=== PATIENT | male | born 1940 | race Caucasian/White ===

== ENCOUNTER → 2016-07-17 | Outpatient (CLI) | payer OTHER ==
[~2016-07-17] MED LIST: ALBUAER19 INH; ASPI81TA28 PO; BENZ100C6 PO; DILT120C99 PO; EZET10TA38 PO; LEVO1TAB34 PO
[2016-07-17 15:35] LABS: CHOLESTEROL/HDL RATIO 4.1
== END | disposition home or self-care (01) ==
LOC: C.LABBC 11:05
PROVIDERS: ATTEND Internal Medicine Cardiovascular Disease
DX: N40.0 Benign prostatic hyperplasia without lower urinary tract symptoms (principal); Z86.39 Personal history of other endocrine, nutritional and metabolic disease

== ENCOUNTER → 2017-08-20 | Outpatient (CLI) | payer OTHER ==
[~2017-08-20] MED LIST changes: +BENZ-54 PO; -BENZ100C6 PO
[2017-08-20 10:33] LABS: BASO % 0.3 %; BASO ABS # 0.02 K/uL (0-0.2); EOS % 3.5 %; EOS ABS # 0.21 K/uL (0-0.5); HEMATOCRIT 40.4 % (42-52); HEMOGLOBIN 13.2 g/dL (14.0-18.0); IG# 0.01 K/uL (0.00-0.02); LYMPH % 34.5 %; LYMPH ABS # 2.05 K/uL (1.2-3.4); MEAN CELL VOLUME 91.6 fL (80-100); MEAN CORPUSCULAR HEMOGLOBIN 29.9 pg (25-34); MEAN CORPUSCULAR HGB CONC 32.7 g/dl (32-36); MEAN PLATELET VOLUME 9.8 fL (7.4-10.4); MONO % 10.4 %; MONO ABS # 0.62 K/uL (0.11-0.59); NEUT % 51.1 %; NEUT ABS # 3.04 K/uL (1.4-6.5); PLATELET COUNT 154 K/uL (130-400); RED CELL DISTRIBUTION WIDTH SD 46.9 fL (36.4-46.3); WHITE BLOOD COUNT 5.95 K/uL (4.8-10.8)
[2017-08-20 10:55] LABS: ALBUMIN 3.5 gm/dl (3.4-5.0); ALT/SGPT 31 U/L (12-78); AST/SGOT 31 U/L (15-37); BLOOD UREA NITROGEN 14 mg/dl (7-18); CALCIUM 8.4 mg/dl (8.5-10.1); CARBON DIOXIDE 30 mmol/L (21-32); CREATININE 1.13 mg/dl (0.60-1.40); GLUCOSE 90 mg/dl (70-99); POTASSIUM 4.2 mmol/L (3.5-5.1); SODIUM 142 mmol/L (136-145)
[2017-08-20 11:04] LABS: ALKALINE PHOSPHATASE 108 U/L (45-117); CHOLESTEROL 161 mg/dl (0-200); LDL CHOLESTEROL CALCULATED 88 mg/dl; TOTAL PROTEIN 7.6 gm/dl (6.4-8.2)
== END | disposition home or self-care (01) ==
LOC: C.LABBC 08:33
PROVIDERS: ATTEND Internal Medicine
DX: K21.9 Gastro-esophageal reflux disease without esophagitis (principal); I25.10 Atherosclerotic heart disease of native coronary artery without angina pectoris; N40.0 Benign prostatic hyperplasia without lower urinary tract symptoms; G47.30 Sleep apnea, unspecified; D64.9 Anemia, unspecified; J84.9 Interstitial pulmonary disease, unspecified; E78.5 Hyperlipidemia, unspecified

== ENCOUNTER 2020-01-16 19:18 | Observation (INO) ==
[2020-01-16 20:24] LABS: Basophils # (auto) 0.01 K/uL (0-0.2); Basophils % (auto) 0.1 %; Eosinophils % (auto) 2.1 %; Hematocrit (blood only) 28.8 % (42-52); Hemoglobin 9.1 g/dL (14.0-18.0); Immature Granulocytes # (auto) 0.03 K/uL (0.00-0.02); Immature Granulocytes % (auto) 0.3 %; Lymphocytes # (auto) 2.05 K/uL (1.2-3.4); Lymphocytes % (auto) 21.9 %; Mean Corpuscular Hemoglobin 28.9 pg (25-34); Mean Corpuscular Hgb Conc 31.6 g/dL (32-36); Mean Corpuscular Volume 91.4 fL (80-100); Mean Platelet Volume 8.7 fL (7.4-10.4); Monocytes # (auto) 0.88 K/uL (0.11-0.59); Monocytes % (auto) 9.4 %; Neutrophils % (auto) 66.2 %; Platelet Count 273 K/uL (130-400); RDW Coefficient of Variation 14.2 % (11.5-14.5); RDW Standard Deviation 47.6 fL (36.4-46.3); Red Blood Count 3.15 M/uL (4.7-6.1); White Blood Count 9.37 K/uL (4.8-10.8)
[2020-01-16 20:37] LABS: INR 1.1 (0.9-1.1); Partial Thromboplastin Ratio 1.1; Partial Thromboplastin Time 30.6 Seconds (21.0-31.0); Prothrombin Time 11.8 Seconds (9.0-12.0)
[2020-01-16 20:45] LABS: Alanine Aminotransferase 46 U/L (12-78); Albumin Level 2.7 gm/dl (3.4-5.0); Aspartate Aminotransferase 45 U/L (15-37); BUN Creatinine Ratio 17.1 (10-20); Blood Urea Nitrogen 22 mg/dl (7-18); Calcium 8.6 mg/dl (8.5-10.1); Carbon Dioxide 30 mmol/L (21-32); Chloride 103 mmol/L (98-107); Est GFR (African American) 59.3; Est GFR (Non-African American) 51.2; Glucose 106 mg/dl (70-99); Sodium 137 mmol/L (136-145)
[2020-01-16 20:50] LABS: Albumin Globulin Ratio 0.6 (0.9-2); Alkaline Phosphatase 268 U/L (45-117); Bilirubin,Total 0.4 mg/dl (0.2-1); Creatine Kinase 166 U/L (39-308); Creatine Kinase MB 1.3 ng/ml (0.5-3.6); Globulin 4.7 gm/dl (2.5-4.0); Total Protein 7.4 gm/dl (6.4-8.2); Troponin I < 0.015 ng/ml (0-0.045)
--- NOTE | 2020-01-16 23:10 | Emergency Department Note ---
History of Present Illness General Chief complaint: Abnormal Labs/Diagnostic Testing Stated complaint: CT SCAN Time Seen by Provider: 01/16/20 19:25 Source: patient, family, RN notes reviewed and old records reviewed Mode of arrival: ambulatory Limitations: no limitations History of Present Illness Provider complaint: Abnormal CT scan, weakness Onset (ago): month(s) 2 Relieved By: + immobilization Exacerbated By: + movement Associated symptoms: + denies other symptoms; no confusion, no chest pain, no cough, no fever/chills, no headaches, no nausea/vomiting and no shortness of breath Treatments prior to arrival: none This is an 79-year-old male who was being worked up by his primary care physician who was sent into the emergency department over concerns about the patient's CAT scan. Patient has been noted to be weak over the past 2 months. 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 He has been on Plavix ever since. The patient has had a noticeable drop in his hemoglobin. 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 The patient himself has no complaints except for weakness. Home Medications Home Medications Medication Instructions Recorded Confirmed Type albuterol sulfate 90 mcg/actuation 1 puffs INH QID PRN #18 gm 10/08/19 01/16/20 Rx aerosol inhaler carvedilol 12.5 mg tablet 12.5 mg PO BID #180 tab 12/02/19 01/16/20 Rx saw palmetto 1 tab PO DAILY 12/02/19 01/16/20 History lycopene 10 mg capsule 10 mg PO DAILY PRN 12/23/19 01/16/20 History benzonatate 100 mg capsule 100 mg PO ONCE PRN cap 01/13/20 01/16/20 History fluticasone propionate 50 2 spray INTRANASAL DAILY #1 box 01/13/20 01/16/20 Rx mcg/actuation nasal spray,suspension aspirin 81 mg PO HS 01/16/20 01/16/20 History atorvastatin 40 mg PO HS 01/16/20 01/16/20 History cholecalciferol (vitamin D3) 50,000 unit PO WE 01/16/20 01/16/20 History clopidogrel 75 mg PO QAM 01/16/20 01/16/20 History cyanocobalamin (vitamin B-12) 500 mcg PO QAM 01/16/20 01/16/20 History fluticasone furoate-vilanterol 1 inh INHALATION QAM 01/16/20 01/16/20 History [Breo Ellipta] furosemide 40 mg PO QAM 01/16/20 01/16/20 History losartan 25 mg PO QAM 01/16/20 01/16/20 History pantoprazole 40 mg PO QAM 01/16/20 01/16/20 History Allergies Allergy/AdvReac Type Severity Reaction Status Date / Time metoprolol AdvReac Unknown GI SYMPTOMS Verified 01/13/20 11:17 Past Med/Surg History Medical History (Updated 01/16/20 @ 23:50 by Tapan Pickard MD) Abdominal pain, right lower quadrant Abnormal CT scan, lung Allergic rhinitis Basal cell carcinoma of skin Cholelithiasis Chronic anemia Chronic sinusitis Coronary artery disease Coughing Enlarged prostate without lower urinary tract symptoms (luts) Environmental allergies Erectile dysfunction HTN (hypertension) Hyperlipidemia Interstitial lung disease RAKAN (obstructive sleep apnea) Persistent cough Pleural effusion, left Pneumonia Wheezing Surgical History History of cardiac cath History of heart artery stent Family History Father Leukemia Prostate cancer Mother Breast cancer Diabetes Brother Myocardial infarction Prostate cancer Diabetes Other Cancer Hypertension Denies family history of Ovarian cancer Lung cancer Colorectal cancer Social History Smoking Status: Never smoker Second Hand Exposure: No; Hx Alcohol Use: Yes Alcohol type: wine Hx Substance Use: No Preferred Language: Dominican Communication Ability: Effective Visual Impairment: No Limitations Hearing Ability: Normal Dental Assistant Required: No marital status: Current Living Situation: Spouse current occupational status: retired current occupation: retired Feels Safe at Home: Yes Childhood Exposure to Second-Hand Smoke: No caffeine: No Dental Care, Regularly: Yes Physical Activity Frequency: 3-4 Times per Week Seatbelt Use: always Sunscreen Use: Yes Review of Systems A total of 10 systems reviewed and were otherwise negative Physical Exam Vital Signs Vital Signs - 24 hr 01/16/20 19:20 01/16/20 19:45 01/16/20 20:09 Temperature 37.3 C Temperature Source Oral Pulse Rate 98 H 86 91 H Pulse Rate from SpO2 Sensor 91 H Pulse Rhythm Regular Regular Pulse Strength Normal Respiratory Rate 20 18 22 Respiratory Effort / Characteristics Non-Labored Spontaneous Respiratory Depth Normal Respiratory Pattern Regular Blood Pressure 114/63 110/63 Blood Pressure Mean 80 78 Blood Pressure Position Sitting Pulse Oximetry 96 95 96 Oxygen Delivery Method Room Air Room Air Sepsis Recent Fever Within 48 Hours No Sepsis New/Unexplained Change in Mental Status N/A Sepsis Action Taken by Nursing No Action Required 01/16/20 20:30 01/16/20 21:00 01/16/20 21:30 Temperature Temperature Source Pulse Rate 87 84 85 Pulse Rate from SpO2 Sensor 87 84 77 Pulse Rhythm Pulse Strength Respiratory Rate 22 22 22 Respiratory Effort / Characteristics Respiratory Depth Respiratory Pattern Blood Pressure 103/56 L 102/57 L 107/62 Blood Pressure Mean 70 70 86 Blood Pressure Position Pulse Oximetry 97 95 96 Oxygen Delivery Method Sepsis Recent Fever Within 48 Hours Sepsis New/Unexplained Change in Mental Status Sepsis Action Taken by Nursing 01/16/20 22:00 01/16/20 22:30 Temperature Temperature Source Pulse Rate 79 84 Pulse Rate from SpO2 Sensor 80 83 Pulse Rhythm Pulse Strength Respiratory Rate 21 22 Respiratory Effort / Characteristics Respiratory Depth Respiratory Pattern Blood Pressure 99/56 L 101/52 L Blood Pressure Mean 70 63 Blood Pressure Position Pulse Oximetry 95 94 Oxygen Delivery Method Sepsis Recent Fever Within 48 Hours Sepsis New/Unexplained Change in Mental Status Sepsis Action Taken by Nursing VITAL SIGNS - Vital signs and nursing notes were reviewed. GENERAL - 79-year-old male appearing stated age who is in no acute distress. Communicates well with provider and answers questions appropriately. SKIN - Without rashes. HEAD - NC/AT. EYES - PERRL with EOMI bilaterally. Sclera anicteric. Palpebral conjunctiva pink and moist with no injection noted. EARS - No deformities of external structures noted on gross examination bilaterally. No pain elicited with palpation of the tragus bilaterally. External auditory canals without discharge or otorrhea. Tympanic membranes pearly herron without retraction or bulging. No fluid or purulent material visualized behind the TM. Handle of malleus, umbo, cone of light, pars tensa/flaccid all easily visualized. NOSE - Midline and without cyanosis. No epistaxis or purulent drainage noted. Septum midline without deviation or septal hematoma noted. MOUTH/OROPHARYNX - Without perioral cyanosis. Buccal mucosa pink and moist and without leukoplakia. Tongue midline with equal elevation of palate bilaterally. No tonsillar hypertrophy, erythema, or exudates noted. dentition noted. NECK - Neck with FROM. Supple to palpation. lymphadenopathy noted. No nuchal rigidity. LUNGS - Chest wall symmetric without accessory muscle use, intercostals retractions, or central cyanosis. Normal vesicular breath sounds CTA B/L. No wheezes, rales, or rhonchi appreciated. CARDIAC - RRR with S1/S2. No murmur, rubs, or gallops appreciated. ABDOMEN - Abdominal contour without pulsations or visible masses. BS normoactive all four quadrants. No tenderness, palpable masses, hepat osplenomegaly, or ascites noted. EXTREMITIES - No clubbing or peripheral cyanosis. No pretibial edema present. +3/5 radial, posterior tibial, and dorsalis pedis pulses palpated throughout. +5/5 strength noted in UE/LE bilaterally. NEUROLOGIC - Cranial nerves II through XII grossly intact. Sensory intact to light touch throughout. Patellar reflexes +2/4. PSYCH - A&Ox3 and cooperates fully with examiner. Pt is very pleasant and interacts well with examiner. Medical Decision Making Differential Diagnosis Infection, dehydration, metabolic abnormality, hypo/hyperglycemia, electrolyte disturbance, anemia, hypoxia, cardiac sources, intracerebral event, toxicologic, neurologic, as well as other pathologies. Medical Records Attestation: I reviewed the patient's medical records. Home Medications Current Medication List: was personally reviewed by me Laboratory Data Attestation: I reviewed the patient's lab results. Result diagrams: 01/16/20 20:00 01/16/20 20:00 Lab Results 01/16/20 01/16/20 01/16/20 Range/Units 20:00 20:00 20:00 WBC 9.37 (4.8-10.8) K/uL RBC 3.15 L (4.7-6.1) M/uL Hgb 9.1 L (14.0-18.0) g/dL Hct 28.8 L (42-52) % MCV 91.4 (80-100) fL MCH 28.9 (25-34) pg MCHC 31.6 L (32-36) g/dL RDW Std Deviation 47.6 H (36.4-46.3) fL RDW Coeff of Marcelina 14.2 (11.5-14.5) % Plt Count 273 (130-400) K/uL MPV 8.7 (7.4-10.4) fL Immature Gran % (Auto) 0.3 % Neut % (Auto) 66.2 % Lymph % (Auto) 21.9 % Monroe % (Auto) 9.4 % Eos % (Auto) 2.1 % Baso % (Auto) 0.1 % Neut # (Auto) 6.20 (1.4-6.5) K/uL Lymph # (Auto) 2.05 (1.2-3.4) K/uL Monroe # (Auto) 0.88 H (0.11-0.59) K/uL Eos # (Auto) 0.20 (0-0.5) K/uL Baso # (Auto) 0.01 (0-0.2) K/uL Immature Gran # (Auto) 0.03 H (0.00-0.02) K/uL ESR (0-14) mm/hr PT 11.8 (9.0-12.0) Seconds INR 1.1 (0.9-1.1) APTT 30.6 (21.0-31.0) Seconds PTT Ratio 1.1 Sodium 137 (136-145) mmol/L Potassium 4.0 (3.5-5.1) mmol/L Chloride 103 (98-107) mmol/L Carbon Dioxide 30 (21-32) mmol/L Anion Gap 4.0 (3-11) BUN 22 H (7-18) mg/dl Creatinine 1.30 (0.6-1.4) mg/dl Est Cr Clr Drug Dosing 46.0 ml/min Est GFR ( Amer) 59.3 Est GFR (Non-Af Amer) 51.2 BUN/Creatinine Ratio 17.1 (10-20) Glucose 106 H (70-99) mg/dl Calcium 8.6 (8.5-10.1) mg/dl Total Bilirubin 0.4 (0.2-1) mg/dl AST 45 H (15-37) U/L ALT 46 (12-78) U/L Alkaline Phosphatase 268 H (45-117) U/L Total Creatine Kinase 166 (39-308) U/L CK-MB (CK-2) 1.3 (0.5-3.6) ng/ml CK/CKMB % Calc 0.8 (0-3.0) Troponin I < 0.015 (0-0.045) ng/ml C-Reactive Protein 11.00 H (0-0.29) mg/dl Total Protein 7.4 (6.4-8.2) gm/dl Albumin 2.7 L (3.4-5.0) gm/dl Globulin 4.7 H (2.5-4.0) gm/dl Albumin/Globulin Ratio 0.6 L (0.9-2) Lyme Disease IgG Ab (Negative) Lyme Disease IgM Ab (Negative) COVID-19 Eval Order COVID-19 PCR (Negative) Blood Type Antibody Screen 01/16/20 01/16/20 01/16/20 Range/Units 20:00 20:00 20:00 WBC (4.8-10.8) K/uL RBC (4.7-6.1) M/uL Hgb (14.0-18.0) g/dL Hct (42-52) % MCV (80-100) fL MCH (25-34) pg MCHC (32-36) g/dL RDW Std Deviation (36.4-46.3) fL RDW Coeff of Marcelina (11.5-14.5) % Plt Count (130-400) K/uL MPV (7.4-10.4) fL Immature Gran % (Auto) % Neut % (Auto) % Lymph % (Auto) % Monroe % (Auto) % Eos % (Auto) % Baso % (Auto) % Neut # (Auto) (1.4-6.5) K/uL Lymph # (Auto) (1.2-3.4) K/uL Monroe # (Auto) (0.11-0.59) K/uL Eos # (Auto) (0-0.5) K/uL Baso # (Auto) (0-0.2) K/uL Immature Gran # (Auto) (0.00-0.02) K/uL ESR 69 H (0-14) mm/hr PT (9.0-12.0) Seconds INR (0.9-1.1) APTT (21.0-31.0) Seconds PTT Ratio Sodium (136-145) mmol/L Potassium (3.5-5.1) mmol/L Chloride (98-107) mmol/L Carbon Dioxide (21-32) mmol/L Anion Gap (3-11) BUN (7-18) mg/dl Creatinine (0.6-1.4) mg/dl Est Cr Clr Drug Dosing ml/min Est GFR ( Amer) Est GFR (Non-Af Amer) BUN/Creatinine Ratio (10-20) Glucose (70-99) mg/dl Calcium (8.5-10.1) mg/dl Total Bilirubin (0.2-1) mg/dl AST (15-37) U/L ALT (12-78) U/L Alkaline Phosphatase (45-117) U/L Total Creatine Kinase (39-308) U/L CK-MB (CK-2) (0.5-3.6) ng/ml CK/CKMB % Calc (0-3.0) Troponin I (0-0.045) ng/ml C-Reactive Protein (0-0.29) mg/dl Total Protein (6.4-8.2) gm/dl Albumin (3.4-5.0) gm/dl Globulin (2.5-4.0) gm/dl Albumin/Globulin Ratio (0.9-2) Lyme Disease IgG Ab (Negative) Lyme Disease IgM Ab (Negative) COVID-19 Eval Order Covid19 Done at [facility] COVID-19 PCR NEGATIVE (Negative) Blood Type Antibody Screen 01/16/20 01/16/20 01/16/20 Range/Units 20:00 20:00 20:13 WBC (4.8-10.8) K/uL RBC (4.7-6.1) M/uL Hgb (14.0-18.0) g/dL Hct (42-52) % MCV (80-100) fL MCH (25-34) pg MCHC (32-36) g/dL RDW Std Deviation (36.4-46.3) fL RDW Coeff of Marcelina (11.5-14.5) % Plt Count (130-400) K/uL MPV (7.4-10.4) fL Immature Gran % (Auto) % Neut % (Auto) % Lymph % (Auto) % Monroe % (Auto) % Eos % (Auto) % Baso % (Auto) % Neut # (Auto) (1.4-6.5) K/uL Lymph # (Auto) (1.2-3.4) K/uL Monroe # (Auto) (0.11-0.59) K/uL Eos # (Auto) (0-0.5) K/uL Baso # (Auto) (0-0.2) K/uL Immature Gran # (Auto) (0.00-0.02) K/uL ESR (0-14) mm/hr PT (9.0-12.0) Seconds INR (0.9-1.1) APTT (21.0-31.0) Seconds PTT Ratio Sodium (136-145) mmol/L Potassium (3.5-5.1) mmol/L Chloride (98-107) mmol/L Carbon Dioxide (21-32) mmol/L Anion Gap (3-11) BUN (7-18) mg/dl Creatinine (0.6-1.4) mg/dl Est Cr Clr Drug Dosing ml/min Est GFR ( Amer) Est GFR (Non-Af Amer) BUN/Creatinine Ratio (10-20) Glucose (70-99) mg/dl Calcium (8.5-10.1) mg/dl Total Bilirubin (0.2-1) mg/dl AST (15-37) U/L ALT (12-78) U/L Alkaline Phosphatase (45-117) U/L Total Creatine Kinase (39-308) U/L CK-MB (CK-2) (0.5-3.6) ng/ml CK/CKMB % Calc (0-3.0) Troponin I (0-0.045) ng/ml C-Reactive Protein Cancelled (0-0.29) mg/dl Total Protein (6.4-8.2) gm/dl Albumin (3.4-5.0) gm/dl Globulin (2.5-4.0) gm/dl Albumin/Globulin Ratio (0.9-2) Lyme Disease IgG Ab Negative (Negative) Lyme Disease IgM Ab Negative (Negative) COVID-19 Eval Order COVID-19 PCR (Negative) Blood Type A Positive Antibody Screen NEGATIVE ECG Data Attestation: I personally reviewed and interpreted this ECG as follows: Indication: + weakness Rate (beats per minute): 85 Rhythm: + sinus rhythm ECG [place]: + Normal ECG ST segments: no ST depression and no ST elevation ECG Findings: + Q waves (Septal) and + PVCs Comparison ECG Date: from (05/01/2013) Change: the following changes noted (New septal infarct) MDM Narrative Patient was seen and evaluated as above in room A2. Review was performed of nursing notes and vital signs. I did review pertinent previous visits and patient history. After obtaining a thorough history and physical examination the above work up was performed. This is an 79-year-old male who presents emergency department sent in by the primary care physician over concerns about a CAT scan. CAT scan is concerning for pericarditis. In addition the patient also has a finding that could be in the ulcer in the aorta. Based on this I did discuss this with the vascular surgeon who felt that this could wait for an outpatient follow-up. In the meantime the patient's hemoglobin found to be 9.1 he is heme-negative on rectal examination. I did discuss the case with the hospitalist service who did agree to admit the patient. Patient and family are agreement with the treatment plan. While in the department, I personally reevaluated the patient several times and each time the patient was found to be resting comfortably. The patient was educated upon management, educated upon todays findings/results, educated upon importance of follow up from today's visit, educated upon symptoms in which to return, had questions answered prior to discharge, verbalized understanding, and was discharged home in good condition. An order was placed for continuous cardiac monitoring. The monitor shows a rate of 80 with Normal SInus rhythm. The patient was evaluated during the global COVID-19 pandemic, and that diagnosis was suspected/considered upon their initial presentation. Their evaluation, treatment and testing was consistent with current guidelines for patients who present with complaints or symptoms that may be related to COVID- 19. Impression & Plan Weakness, Anemia Discharge Plan Visit Data Chief Complaint: Abnormal Labs/Diagnostic Testing Stated Complaint: CT SCAN ED Provider: Tapan Pickard Discharge Problem: Weakness, Anemia Forms Stand Alone Forms: [email or web address] Prescriptions Prescriptions: No Action carvedilol 12.5 mg tablet 12.5 mg PO BID Qty: 180 RF: 3 benzonatate [Tessalon Perles] 100 mg capsule 100 mg PO ONCE PRN (Reason: Congestion) RF: 0 fluticasone propionate [Flonase Allergy Relief] 50 mcg/actuation spray,suspension 2 spray intranasal DAILY Qty: 1 RF: 3 saw palmetto 1 tab PO DAILY RF: 0 lycopene 10 mg capsule 10 mg PO DAILY PRN (Reason: .) RF: 0 albuterol sulfate 90 mcg/actuation HFA aerosol inhaler 1 puffs INH QID PRN (Reason: shortness of breath or wheezing) Qty: 18 RF: 2 furosemide 40 mg tablet 40 mg PO QAM RF: 0 atorvastatin 40 mg tablet 40 mg PO HS RF: 0 clopidogrel 75 mg tablet 75 mg PO QAM RF: 0 aspirin 81 mg tablet,delayed release (DR/EC) 81 mg PO HS RF: 0 cyanocobalamin (vitamin B-12) 500 mcg tablet 500 mcg PO QAM RF: 0 pantoprazole 40 mg tablet,delayed release (DR/EC) 40 mg PO QAM RF: 0 losartan 25 mg tablet 25 mg PO QAM RF: 0 cholecalciferol (vitamin D3) 1,250 mcg (50,000 unit) capsule 50,000 unit PO WE RF: 0 Breo Ellipta 100-25 mcg/dose blister with device 1 inh inhalation QAM RF: 0 Discharge Problem: Anemia Qualifiers: Anemia type: unspecified type Qualified Code(s): D64.9 - Anemia, unspecified
[2020-01-16 23:13] LABS: Lyme Ab IgG w/WB Rflx Negative (Negative); Lyme Ab IgM w/WB Rflx Negative (Negative)
--- NOTE | 2020-01-16 23:30 | History & Physical Report ---
Date of Service January 16, 2020 Assessment & Plan (1) Pericardial disease: Pericardial disease/anemia/progressive weakness- CT of abdomen pelvis performed as outpatient, suggestive of pericardial thickening and pericardial disease. We will place patient on aspirin 81 mg p.o. twice daily and colchicine 0.6 mg p.o. twice daily. Order a complete echocardiogram. Consult cardiology. Add sedimentation rate and Lyme testing to current ED laboratories. Patient was COVID-19 negative while in the ED. We will order additional viral studies, including coxsackie B virus, parvovirus, EBV and CMV. Assess for connective tissue disease with screening JACQUES. Patient's symptoms complex of generalized weakness and progressive anemia are also consistent with polymyalgia rheumatica. Present on Admission?: Yes (2) Weakness: See above Present on Admission?: Yes (3) Anemia: See above Heme-negative in ED. Present on Admission?: Yes (4) Pleural effusion, left: On and off, noted in April 2019. Noted again on chest x-ray 12/26/2019. Overall looks euvolemic, but will get cardiology opinion regarding cardiology contribution. Known interstitial lung disease. May get pulmonology consult as needed. Present on Admission?: Yes (5) Coronary artery disease: CAD/hypertension/ischemic cardiomyopathy/chronic systolic heart failure/STEMI/stented coronary artery on April 2019 in [place]- Increasing aspirin dose as noted above. Continue carvedilol 12.5 mg p.o. twice daily, clopidogrel 75 mg p.o. every morning, furosemide 40 mg p.o. every morning and losartan 25 mg p.o. every morning Present on Admission?: Yes (6) Chronic systolic (congestive) heart failure: (7) Ischemic cardiomyopathy: (8) RAKAN (obstructive sleep apnea): Patient will use own CPAP Present on Admission?: Yes (9) Hyperlipidemia: Continue atorvastatin 40 mg at bedtime Present on Admission?: Yes (10) Gastroesophageal reflux disease: Continue pantoprazole 40 mg daily Present on Admission?: Yes History of Present Illness Chief Complaint: The patient was referred to the emergency department by his PCP, due to an abnormal CT scan of abdomen and pelvis which suggested pericarditis Primary Care Provider: Jered Aquino MD The patient is an 79-year-old male with a past medical history including CAD, STEMI, status post stent placement 04/2019, GERD, ischemic cardiomyopathy, chronic systolic heart failure, CKD stage III, interstitial lung disease, chronic anemia, RAKAN, hypertension and hyperlipidemia. The patient reports that he has had symptoms over the past 2 months of persistent generalized fatigue and shortness of breath with activity. As he was being worked up in the outpatient setting, he had a CT scan of abdomen and pelvis today which showed a moderate left pleural effusion, pericardial thickening and enhancement suggestive of pericarditis, and a small ulcerated plaque versus penetrating ulcer at the aortic bifurcation. Laboratories also revealed a progressive anemia from a hemoglobin of 13.5 on 03/17/2019, to 11.6 on 10/14/19, to the low 9.4 on 01/05, and 9.1 on 01/15. He was sent to the ED for further assessment and management. Allergies Allergy/AdvReac Type Severity Reaction Status Date / Time metoprolol AdvReac Unknown GI SYMPTOMS Verified 01/13/20 11:17 Home Medications Home Medications Medication Instructions Recorded Confirmed Type albuterol sulfate 90 mcg/actuation 1 puffs INH QID PRN #18 gm 10/08/19 01/16/20 Rx aerosol inhaler carvedilol 12.5 mg tablet 12.5 mg PO BID #180 tab 12/02/19 01/16/20 Rx saw palmetto 1 tab PO DAILY 12/02/19 01/16/20 History lycopene 10 mg capsule 10 mg PO DAILY PRN 12/23/19 01/16/20 History benzonatate 100 mg capsule 100 mg PO ONCE PRN cap 01/13/20 01/16/20 History fluticasone propionate 50 2 spray INTRANASAL DAILY #1 box 01/13/20 01/16/20 Rx mcg/actuation nasal spray,suspension aspirin 81 mg PO HS 01/16/20 01/16/20 History atorvastatin 40 mg PO HS 01/16/20 01/16/20 History cholecalciferol (vitamin D3) 50,000 unit PO WE 01/16/20 01/16/20 History clopidogrel 75 mg PO QAM 01/16/20 01/16/20 History cyanocobalamin (vitamin B-12) 500 mcg PO QAM 01/16/20 01/16/20 History fluticasone furoate-vilanterol 1 inh INHALATION QAM 01/16/20 01/16/20 History [Breo Ellipta] furosemide 40 mg PO QAM 01/16/20 01/16/20 History losartan 25 mg PO QAM 01/16/20 01/16/20 History pantoprazole 40 mg PO QAM 01/16/20 01/16/20 History Past Med/Surg History Medical History (Updated 01/17/20 @ 02:30 by Matty Elizabeth MD) Abdominal pain, right lower quadrant Abnormal CT scan, lung Allergic rhinitis Basal cell carcinoma of skin Cholelithiasis Chronic anemia Chronic sinusitis Coronary artery disease Coughing Enlarged prostate without lower urinary tract symptoms (luts) Environmental allergies Erectile dysfunction HTN (hypertension) Hyperlipidemia Interstitial lung disease RAKAN (obstructive sleep apnea) Persistent cough Pleural effusion, left Pneumonia Wheezing Surgical History History of cardiac cath History of heart artery stent Family History Father Leukemia Prostate cancer Mother Breast cancer Diabetes Brother Myocardial infarction Prostate cancer Diabetes Other Cancer Hypertension Denies family history of Ovarian cancer Lung cancer Colorectal cancer Social History Smoking Status: Never smoker Second Hand Exposure: No; Hx Alcohol Use: No Hx Substance Use: No Preferred Language: Danish Communication Ability: Effective Visual Impairment: No Limitations Hearing Ability: Normal Chicken Boner Required: No Beliefs That Will Affect Care: None marital status: Current Living Situation: Spouse current occupational status: retired current occupation: retired Feels Safe at Home: Yes Childhood Exposure to Second-Hand Smoke: No caffeine: No Dental Care, Regularly: Yes Physical Activity Frequency: 3-4 Times per Week Seatbelt Use: always Sunscreen Use: Yes Review of Systems Review of Systems: The patient denies chest pain, palpitations, cough, lower extremity swelling, sore throat, fevers, chills, sweats, nausea, vomiting, diarrhea , constipation, abdominal pain, pelvic pain, blood in urine or stool, dysuria, urinary frequency or urgency, lightheadedness, dizziness, headache, memory loss, loss of consciousness, rash, abnormal bruising or bleeding, imbalance, focal weakness, numbness or tingling in arms or legs, generalized arthralgias or myalgias, back or neck pain, or night sweats. The review of systems is otherwise negative other than for that already noted above, and at least 10 systems have been reviewed. Physical Exam Physical Exam: The patient is awake, alert and oriented 3, well developed and well nourished, normocephalic and atraumatic, lying in bed and in no acute distress. HEENT--PERRL, EOMI, mucous membranes and oropharynx normal. Neck--supple. No JVD. No bruits. Thyroid normal, trachea midline, no adenopathy. Heart--normal S1 and S2. No murmurs, rubs or gallops. Lungs--clear bilaterally, no respiratory distress, no accessory muscle use. Abdomen--normal bowel sounds and soft. Nontender. Nondistended. Extremities--no cyanosis or clubbing. No edema. Dermatologic--normal skin turgor, normal color, no abnormal lymph nodes, no rash. Neurologic--cranial nerves II through XII grossly intact. Rheumatologic--normal range of motion. Psychiatric--normal affect. Results & Data Results & Data ([facility]) Vital Signs (Past 12 Hours) Vital Signs Temp Pulse Resp BP Pulse Ox 01/16/20 22:30 84 22 101/52 L 94 01/16/20 22:00 79 21 99/56 L 95 01/16/20 21:30 85 22 107/62 96 01/16/20 21:00 84 22 102/57 L 95 01/16/20 20:30 87 22 103/56 L 97 01/16/20 20:09 91 H 22 110/63 96 01/16/20 19:45 86 18 95 01/16/20 19:20 99.1 F 98 H 20 114/63 96 Laboratory Results Laboratory Results WBC 9.37 K/uL (4.8-10.8) 01/16/20 20:00 RBC 3.15 M/uL (4.7-6.1) L 01/16/20 20:00 Hgb 9.1 g/dL (14.0-18.0) L 01/16/20 20:00 Hct 28.8 % (42-52) L 01/16/20 20:00 MCV 91.4 fL (80-100) 01/16/20 20:00 MCH 28.9 pg (25-34) 01/16/20 20:00 MCHC 31.6 g/dL (32-36) L 01/16/20 20:00 RDW Std Deviation 47.6 fL (36.4-46.3) H 01/16/20 20:00 RDW Coeff of Marcelina 14.2 % (11.5-14.5) 01/16/20 20: Plt Count 273 K/uL (130-400) 01/16/20 20:00 MPV 8.7 fL (7.4-10.4) 01/16/20 20:00 Immature Gran % (Auto) 0.3 % 01/16/20 20:00 Neut % (Auto) 66.2 % 01/16/20 20:00 Lymph % (Auto) 21.9 % 01/16/20 20:00 [place] % (Auto) 9.4 % 01/16/20 20:00 Eos % (Auto) 2.1 % 01/16/20 20:00 Baso % (Auto) 0.1 % 01/16/20 20:00 Neut # (Auto) 6.20 K/uL (1.4-6.5) 01/16/20 20:00 Lymph # (Auto) 2.05 K/uL (1.2-3.4) 01/16/20 20:00 [place] # (Auto) 0.88 K/uL (0.11-0.59) H 01/16/20 20:00 Eos # (Auto) 0.20 K/uL (0-0.5) 01/16/20 20:00 Baso # (Auto) 0.01 K/uL (0-0.2) 01/16/20 20:00 Immature Gran # (Auto) 0.03 K/uL (0.00-0.02) H 01/16/20 20:00 ESR 69 mm/hr (0-14) H 01/16/20 20:00 PT 11.8 Seconds (9.0-12.0) 01/16/20 20:00 INR 1.1 (0.9-1.1) 01/16/20 20:00 APTT 30.6 Seconds (21.0-31.0) 01/16/20 20:00 PTT Ratio 1.1 01/16/20 20:00 Sodium 137 mmol/L (136-145) 01/16/20 20:00 Potassium 4.0 mmol/L (3.5-5.1) 01/16/20 20:00 Chloride 103 mmol/L (98-107) 01/16/20 20:00 Carbon Dioxide 30 mmol/L (21-32) 01/16/20 20:00 Anion Gap 4.0 (3-11) 01/16/20 20:00 BUN 22 mg/dl (7-18) H 01/16/20 20:00 Creatinine 1.30 mg/dl (0.6-1.4) 01/16/20 20:00 Est Cr Clr Drug Dosing 46.0 ml/min 01/16/20 20:00 Est GFR ( Amer) 59.3 01/16/20 20:00 Est GFR (Non-Af Amer) 51.2 01/16/20 20:00 BUN/Creatinine Ratio 17.1 (10-20) 01/16/20 20:00 Glucose 106 mg/dl (70-99) H 01/16/20 20:00 Calcium 8.6 mg/dl (8.5-10.1) 01/16/20 20:00 Total Bilirubin 0.4 mg/dl (0.2-1) 01/16/20 20:00 AST 45 U/L (15-37) H 01/16/20 20:00 ALT 46 U/L (12-78) 01/16/20 20:00 Alkaline Phosphatase 268 U/L (45-117) H 01/16/20 20:00 Total Creatine Kinase 166 U/L (39-308) 01/16/20 20:00 CK-MB (CK-2) 1.3 ng/ml (0.5-3.6) 01/16/20 20:00 CK/CKMB % Calc 0.8 (0-3.0) 01/16/20 20:00 Troponin I < 0.015 ng/ml (0-0.045) 01/16/20 20:00 C-Reactive Protein 11.00 mg/dl (0-0.29) H 01/16/20 20:00 C-Reactive Protein Cancelled 01/16/20 20:00 Total Protein 7.4 gm/dl (6.4-8.2) 01/16/20 20:00 Albumin 2.7 gm/dl (3.4-5.0) L 01/16/20 20: Globulin 4.7 gm/dl (2.5-4.0) H 01/16/20 20:00 Albumin/Globulin Ratio 0.6 (0.9-2) L 01/16/20 20:00 Lyme Disease IgG Ab Negative (Negative) 01/16/20 20:00 Lyme Disease IgM Ab Negative (Negative) 01/16/20 20:00 COVID-19 Eval Order Covid19 Done at [facility] 01/16/20 20:00 COVID-19 PCR NEGATIVE (Negative) 01/16/20 20:00 Blood Type A Positive 01/16/20 20:13 Antibody Screen NEGATIVE 01/16/20 20:13 Diagnostic Findings [place], [place] [phone] CT Scan Report Patient: RETA ARRIOLAAdmdino Date: 01/14/20 MR#: [id number] Acct ID:[id number]: Date: 1940City Zip: [place] [address] Age: 79Location: CT Sex: MRoom/Bed: Att Phy: Jered Aquino MDDiagnosis: ANEMIA,ELEVATED APL,FATIGUE Lita Phy: Jered Aquino MDService Date: 01/16/20 Fam Phy:Interpreting Phy: Adolfo Morelos MD Admit Phy: Ordering Phy: Jered Aquino MD cc: ~ CT abd pelvis oral and IV con CLINICAL HISTORY: ANEMIA,ELEVATED APL,FATIGUE COMPARISON STUDY: March 2013 TECHNIQUE: The patient was scanned following administration of dilute oral cont rast, and in a dynamic helical fashion during intravenous administration of 93 cc of Optiray 320. A dose lowering technique was utilized adhering to the principles of ALARA. CT DOSE: 398.52 mGy.cm FINDINGS: Lower chest: There are [id number] left pleural effusion and trace right pleural effusion. There is a small pericardial effusion with pericardial enhancement. The findings are suggestive of a pericarditis area There are dependent airspace opacities likely atelectatic. Liver: The contrast-enhanced liver is normal in size, contour, and attenuation. There is no intrahepatic biliary ductal dilatation. The hepatic veins and portal veins are patent. Gallbladder: Cholelithiasis. No gallbladder wall thickening Spleen: Normal in size and attenuation. Pancreas: Unremarkable. Adrenal glands: Unremarkable. Kidneys: There is symmetric renal cortical enhancement. The kidneys are normal in size without hydronephrosis. Bowel: There are no transition zones indicate bowel obstruction. There is extensive colonic diverticulosis. There is no evidence of acute appendicitis. By history the appendix is absent. Peritoneum: There is no intraperitoneal free air or abdominal ascites. Vasculature: There is ectasia of the infrarenal abdominal aorta. There is a small ulcerated plaque versus penetrating ulcer located just above the aortic bifurcation. Adenopathy: None. Pelvic viscera: There is bladder wall thickening. There is mild prostatic enlargement Skeletal structures: No destructive osseous lesions are seen. IMPRESSION: 1. Moderate left pleural effusion and trace right pleural effusion 2. Pericardial thickening and enhancement. The findings suggest pericarditis. Clinical correlation advocated 3. No evidence of bowel obstruction. No evidence of free air 4. Diverticulosis. No evidence of acute diverticulitis 5. Bladder wall thickening 6. Small ulcerated plaque versus penetrating ulcer at the aortic bifurcation 7. Cholelithiasis ACT 112: Negative or not required by law. Electronically signed by: Adolfo Morelos M.D. 01/16/2020 4:01 PM Dictated: 01/16/20 1542 Transcribed: 01/16/20 1542 Code Status & VTE Plan Code Status full code VTE Prophylaxis Plan VTE Prophylaxis will be ordered: Yes PG Care Time/CCT Total # of Minutes Spent Total Time Spent with Patient: Total time spent is greater than 50% in coordination of care (as documented) at patient's floor/unit and/or counseling patient: Coding Level of Care Code 70818 Initial Inpt Care Lvl 3 Diagnoses Pericardial disease I31.9 Weakness R53.1 Anemia D64.9 Anemia type: unspecified type Pleural effusion, left J90 Coronary artery disease I25.10 Chronic systolic (congestive) heart failure I50.22 Ischemic cardiomyopathy I25.5 RAKAN (obstructive sleep apnea) G47.33 Hyperlipidemia E78.5 Gastroesophageal reflux disease K21.9 (1) Anemia Anemia type: unspecified type Qualified Code(s): D64.9 - Anemia, unspecified
[2020-01-17] MEDS ORDERED: LYCOPENE 10 MG PO PRN (01:51)
[2020-01-17] MEDS ORDERED: ONDANSETRON INJ 2 MG/ML 2 ML VIAL IV PRN (01:51)
[2020-01-17] MEDS ORDERED: POLYETHYLENE (MIRALAX) 17 GM PACK PO PRN (01:51)
[2020-01-17] MEDS ORDERED: ALUMINUM/MAGNESIUM SUSP 30 ML UDC PO PRN (01:51)
[2020-01-17] MEDS ORDERED: COLCHICINE 0.6 MG TAB PO ONE (01:51)
[2020-01-17] MEDS ORDERED: ACETAMINOPHEN 325 MG TAB PO PRN (01:51)
[2020-01-17] MEDS ORDERED: MAGNESIUM HYDROXIDE SUSP 30 ML UDC PO PRN (01:51)
[2020-01-17] MEDS: carvediloL 12.5 MG TAB PO SCH ×2 (03:20→09:03)
[2020-01-17 06:06] LABS: Basophils # (auto) 0.02 K/uL (0-0.2); Basophils % (auto) 0.3 %; Eosinophils % (auto) 2.7 %; Hematocrit (blood only) 27.5 % (42-52); Hemoglobin 8.9 g/dL (14.0-18.0); Immature Granulocytes # (auto) 0.02 K/uL (0.00-0.02); Immature Granulocytes % (auto) 0.3 %; Lymphocytes # (auto) 1.53 K/uL (1.2-3.4); Lymphocytes % (auto) 20.6 %; Mean Corpuscular Hemoglobin 29.5 pg (25-34); Mean Corpuscular Hgb Conc 32.4 g/dL (32-36); Mean Corpuscular Volume 91.1 fL (80-100); Mean Platelet Volume 8.6 fL (7.4-10.4); Monocytes # (auto) 1.02 K/uL (0.11-0.59); Monocytes % (auto) 13.8 %; Neutrophils # (auto) 4.62 K/uL (1.4-6.5); Neutrophils % (auto) 62.3 %; Platelet Count 232 K/uL (130-400); RDW Coefficient of Variation 14.3 % (11.5-14.5); Red Blood Count 3.02 M/uL (4.7-6.1); White Blood Count 7.41 K/uL (4.8-10.8)
[2020-01-17 06:39] LABS: Alanine Aminotransferase 38 U/L (12-78); Albumin Level 2.5 gm/dl (3.4-5.0); Aspartate Aminotransferase 34 U/L (15-37); BUN Creatinine Ratio 18.6 (10-20); Blood Urea Nitrogen 22 mg/dl (7-18); Calcium 8.3 mg/dl (8.5-10.1); Carbon Dioxide 29 mmol/L (21-32); Chloride 106 mmol/L (98-107); Creatinine Clr Calc Pharmacy 51.6 ml/min; Est GFR (African American) 68.1; Est GFR (Non-African American) 58.7; Glucose 97 mg/dl (70-99); Potassium 3.9 mmol/L (3.5-5.1); Sodium 140 mmol/L (136-145)
[2020-01-17 06:44] LABS: Albumin Globulin Ratio 0.6 (0.9-2); Alkaline Phosphatase 237 U/L (45-117); Bilirubin,Total 0.5 mg/dl (0.2-1); Globulin 4.1 gm/dl (2.5-4.0); Total Protein 6.6 gm/dl (6.4-8.2); Troponin I < 0.015 ng/ml (0-0.045)
[2020-01-17 08:45] LABS: Folate (Folic Acid) 8.21 ng/ml (>5.38)
[2020-01-17] MEDS ORDERED: COLCHICINE 0.6 MG TAB PO SCH (09:00)
[2020-01-17] MEDS ORDERED: PANTOprazole 40 MG TAB PO SCH (09:00)
[2020-01-17] MEDS ORDERED: LOSARTAN POTASSIUM 25 MG TAB PO SCH (09:00)
[2020-01-17] MEDS ORDERED: CYANOCOBALAMIN 500 MCG TABLET (VITAMIN B-12) PO SCH (09:00)
[2020-01-17] MEDS ORDERED: CLOPIDOGREL BISULFATE 75 MG TAB PO SCH (09:00)
[2020-01-17] MEDS ORDERED: SAW PALMETTO PO SCH (09:00)
[2020-01-17] MEDS ORDERED: FUROSEMIDE 40 MG TAB PO SCH (09:00)
[2020-01-17] MEDS ORDERED: FLUTICASONE/VILANTEROL 100/25MCG 14 PUFFS/INHALER INH SCH (09:00)
--- NOTE | 2020-01-17 10:26 | XCELERA ---
[id number]
--- NOTE | 2020-01-17 12:07 | Electrocardiogram Report ---
Test Reason : Blood Pressure : / mmHG Vent. Rate : 092 BPM Atrial Rate : 092 BPM P-R Int : 134 ms QRS Dur : 078 ms QT Int : 360 ms P-R-T Axes : 059 031 086 degrees QTc Int : 445 ms Sinus rhythm with occasional Premature ventricular complexes Septal infarct , age undetermined Abnormal ECG When compared with ECG of 01-MAY-2013 15:46, Premature ventricular complexes are now Present QRS voltage has decreased Septal infarct is now Present Confirmed by Red Marie ([id number]) on 01/17/2020 12:06:29 PM Referred By: Mahsa Wallace Confirmed By:Red Marie
--- NOTE | 2020-01-17 12:10 | Electrocardiogram Report ---
Test Reason : Blood Pressure : / mmHG Vent. Rate : 085 BPM Atrial Rate : 085 BPM P-R Int : 136 ms QRS Dur : 078 ms QT Int : 358 ms P-R-T Axes : 053 024 093 degrees QTc Int : 426 ms Sinus rhythm with occasional Premature ventricular complexes Septal infarct (cited on or before 16-JAN-2020) Abnormal ECG When compared with ECG of 16-JAN-2020 19:50, (unconfirmed) No significant change was found Confirmed by Red Marie ([id number]) on 01/17/2020 12:10:07 PM Referred By: Mahsa Wallace Confirmed By:Red Marie
--- NOTE | 2020-01-17 12:14 | Electrocardiogram Report ---
Test Reason : Blood Pressure : / mmHG Vent. Rate : 076 BPM Atrial Rate : 076 BPM P-R Int : 136 ms QRS Dur : 070 ms QT Int : 400 ms P-R-T Axes : 064 055 063 degrees QTc Int : 450 ms Sinus rhythm with occasional Premature ventricular complexes Possible Left atrial enlargement Septal infarct (cited on or before 16-JAN-2020) T wave abnormality, consider anterior ischemia Abnormal ECG When compared with ECG of 16-JAN-2020 21:25, (unconfirmed) No significant change was found Confirmed by Red Marie ([id number]) on 01/17/2020 12:14:24 PM Referred By: Mahsa Wallace Confirmed By:Red Marie
--- NOTE | 2020-01-17 13:14 | Cardiology Consultation ---
Date of Consultation January 17, 2020 Assessment & Plan (1) Pericardial disease: -patient has had no symptoms of pericarditis. -no EKG changes suggestive of pericarditis. -would discontinue colchicine. (2) PVD (peripheral vascular disease): -ulcerated plaque or penetrating ulcer at level of aortic bifurcation noted on CT scan. -the patient has no symptoms. -would simply continue aspirin, Plavix, and atorvastatin. (3) Coronary artery disease: -anterior STEMI, April 2019. -proximal LAD ANIYAH. -continue medical management. (4) Ischemic cardiomyopathy: -ejection fraction stable at 40% on current study. -continue carvedilol and losartan. (5) HTN (hypertension): -adequate control on current regimen. (6) Hyperlipidemia: -continue atorvastatin. (7) Anemia: -likely cause of his complaints of fatigue and exertional dyspnea. -workup per primary team. History of Present Illness Attending Physician: Matt Le History of Present Illness Mr. Dee is an 79-year-old male admitted yesterday because of complaints of fatigue, dyspnea, and abnormal CT scan of the abdomen pelvis. This consultation was ordered to assist in his management. Of note, the patient is well known to me from the outpatient setting. The patient was in his usual state of health until approximately 4 weeks ago. The patient began to notice significant fatigue and was experiencing exertional dyspnea. He went to his primary care provider with those complaints and his CBC revealed a significant anemia. The patient was scheduled for a CT scan of the abdomen and pelvis. That study was performed on January 15 and revealed a moderate-size left pleural effusion. There was pericardial thickening and enhancement suggesting the possibility of pericarditis. There is a small ulcerative plaque versus penetrating ulcer at the aortic bifurcation. After that report was reviewed, the patient was advised to proceed to the emergency room for further care. At no time has the patient experienced exertional chest discomfort. He also denies abdominal complaints. His experienced any syncope, presyncope, PND, orthopnea, palpitations, lower extremity edema, or claudication. The patient's cardiac history began in April of this year when he presented to a hospital in [place], [place] with an acute anterior wall myocardial infarction. He had a drug-eluting stent placed to the proximal LAD. There was no other significant disease. The patient had a resultant ischemic cardiomyopathy with ejection fraction of 25%. Fortunately, with time and medical management, the patient's ejection fraction improved to 40% on a study done in July of this year. He did have an anteroapical wall motion abnormality. The patient does follow daily weights at home and typically notes a dry weight 165 lb. He typically takes Lasix 40 mg daily with an additional dose when necessary for weight gain. Currently, patient is resting comfortably in bed without complaints. His is at the bedside, and his [id number] joined us by speaker phone. Past medical and surgical history 1. Coronary artery disease-see above 2. Proximal LAD ANIYAH-April 2019 3. Ischemic cardiomyopathy-40%, July 2019 3. Chronic systolic CHF 4. Hypertension 5. Hypercholesterolemia 6. Chronic renal failure 7. Interstitial lung disease 8. GERD 9. 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 Allergies Allergy/AdvReac Type Severity Reaction Status Date / Time metoprolol AdvReac Unknown GI SYMPTOMS Verified 01/13/20 11:17 Home Medications Home Medications Medication Instructions Recorded Confirmed Type albuterol sulfate 90 mcg/actuation 1 puffs INH QID PRN #18 gm 10/08/19 01/16/20 Rx aerosol inhaler carvedilol 12.5 mg tablet 12.5 mg PO BID #180 tab 12/02/19 01/16/20 Rx saw palmetto 1 tab PO DAILY 12/02/19 01/16/20 History lycopene 10 mg capsule 10 mg PO DAILY PRN 12/23/19 01/16/20 History benzonatate 100 mg capsule 100 mg PO ONCE PRN cap 01/13/20 01/16/20 History fluticasone propionate 50 2 spray INTRANASAL DAILY #1 box 01/13/20 01/16/20 Rx mcg/actuation nasal spray,suspension aspirin 81 mg PO HS 01/16/20 01/16/20 History atorvastatin 40 mg PO HS 01/16/20 01/16/20 History cholecalciferol (vitamin D3) 50,000 unit PO WE 01/16/20 01/16/20 History clopidogrel 75 mg PO QAM 01/16/20 01/16/20 History cyanocobalamin (vitamin B-12) 500 mcg PO QAM 01/16/20 01/16/20 History fluticasone furoate-vilanterol 1 inh INHALATION QAM 01/16/20 01/16/20 History [Breo Ellipta] furosemide 40 mg PO QAM 01/16/20 01/16/20 History losartan 25 mg PO QAM 01/16/20 01/16/20 History pantoprazole 40 mg PO QAM 01/16/20 01/16/20 History Patient History Medical History (Updated 01/17/20 @ 13:09 by Red Marie MD) Abdominal pain, right lower quadrant Abnormal CT scan, lung Allergic rhinitis Basal cell carcinoma of skin Cholelithiasis Chronic anemia Chronic sinusitis Coronary artery disease Coughing Enlarged prostate without lower urinary tract symptoms (luts) Environmental allergies Erectile dysfunction HTN (hypertension) Hyperlipidemia Interstitial lung disease RAKAN (obstructive sleep apnea) Persistent cough Pleural effusion, left Pneumonia Wheezing Surgical History History of cardiac cath History of heart artery stent Family History Father Leukemia Prostate cancer Mother Breast cancer Diabetes Brother Myocardial infarction Prostate cancer Diabetes Other Cancer Hypertension Denies family history of Ovarian cancer Lung cancer Colorectal cancer Social History Smoking Status: Never smoker Second Hand Exposure: No; Hx Alcohol Use: No Hx Substance Use: No Preferred Language: Burmese Communication Ability: Effective Visual Impairment: No Limitations Hearing Ability: Normal Egg Processor Required: No Beliefs That Will Affect Care: None marital status: Current Living Situation: Spouse current occupational status: retired current occupation: retired Feels Safe at Home: Yes Childhood Exposure to Second-Hand Smoke: No caffeine: No Dental Care, Regularly: Yes Physical Activity Frequency: 3-4 Times per Week Seatbelt Use: always Sunscreen Use: Yes Physical Exam Physical Exam: In general this is a well-developed well-nourished white male in no acute distress. HEENT exam is normal. Neck reveals normal carotid upstrokes without bruits. No JVD. There is no thyromegaly. Cardiovascular exam reveals a regular rhythm with a normal S1 and S2. An S4 is present. No murmurs or S3 noted. Lungs are clear without rales, rhonchi, or wheezes. Abdomen is soft without bruits. Extremities reveal intact radial artery and posterior tibial pulses bilaterally. There is no peripheral edema. Results & Data ([facility]) Vital Signs (Past 12 Hours) Vital Signs Temp Pulse Resp BP Pulse Ox 01/17/20 12:07 37.0 C 80 17 106/64 96 01/17/20 08:19 36.8 C 74 18 107/63 96 01/17/20 03:15 36.6 C 78 17 104/65 97 01/17/20 01:51 16 01/17/20 01:45 37 C 87 16 106/65 95 Laboratory Results CBC notes hemoglobin of 8.9, hematocrit 27.5, white count 7.4, platelet count [id number]. Electrolytes noted sodium of 140, potassium 3.9, chloride 106, bicarb 29, BUN 22, creatinine 1.16, and glucose of 97. Troponin I levels undetectable x2. Lyme titer is negative. Diagnostic Findings EKG notes normal sinus rhythm with occasional PVC and old anteroseptal MT. Echocardiogram notes mildly reduced systolic function with ejection fraction 40%. There is an anteroapical wall motion abnormality. There is mild tricuspid regurgitation. A trivial pericardial effusion is seen. A left-sided pleural effusion is also noted. PG Care Time/CCT Total # of Minutes Spent Total Time Spent with Patient: Total time spent is greater than 50% in coordination of care (as documented) at patient's floor/unit and/or counseling p atient: Coding Level of Care Code 18947 OBS Care - Level 3 Diagnoses Pericardial disease I31.9 PVD (peripheral vascular disease) I73.9 Coronary artery disease I25.10 Ischemic cardiomyopathy I25.5 HTN (hypertension) I10 Hyperlipidemia E78.5 Anemia D64.9 Anemia type: unspecified type (1) Anemia Anemia type: unspecified type Qualified Code(s): D64.9 - Anemia, unspecified
[2020-01-17] MEDS ORDERED: ATORVASTATIN 40 MG TAB PO SCH (21:00)
[2020-01-17] MEDS ORDERED: ASPIRIN 81 MG ECTAB PO SCH (21:00)
[2020-01-19 12:26] LABS: EBV Virus Capsid Ag IgG Ab >750.00 U/mL; Epstein Barr Virus Early Ag Ab <9.00 U/mL
[2020-01-22 18:46] LABS: Anti Nuclear Antibody Screen NEGATIVE (NEGATIVE); CMV IgM Antibody <30.00 AU/mL; Coxsackie B1 <1:8 (<1:8); Coxsackie B3 <1:8 (<1:8); Coxsackie B4 <1:8 (<1:8); Coxsackie B5 <1:8 (<1:8); Coxsackie B6 <1:8 (<1:8); Parvovirus IgG 1.9 (<0.9); Parvovirus IgM 0.1 (<0.9)
--- NOTE | 2020-01-24 15:12 | Discharge Summary ---
Date of Service January 17, 2020 Admission HPI Per Admitting Provider The patient is an 79-year-old male with a past medical history including CAD, STEMI, status post stent placement 04/2019, GERD, ischemic cardiomyopathy, chronic systolic heart failure, CKD stage III, interstitial lung disease, chronic anemia, RAKAN, hypertension and hyperlipidemia. The patient reports that he has had symptoms over the past 2 months of persistent generalized fatigue and shortness of breath with activity. As he was being worked up in the outpatient setting, he had a CT scan of abdomen and pelvis today which showed a moderate left pleural effusion, pericardial thickening and enhancement suggestive of pericarditis, and a small ulcerated plaque versus penetrating ulcer at the aortic bifurcation. Laboratories also revealed a progressive anemia from a hemoglobin of 13.5 on 03/17/2019, to 11.6 on 10/14/19, to the low 9.4 on 01/05, and 9.1 on 01/15. He was sent to the ED for further assessment and management. Principal Diagnosis GENERALIZED WEAKNESS Discharge Exam The patient is awake, alert and oriented 3, well developed and well nourished, normocephalic and atraumatic, lying in bed and in no acute distress. HEENT--PERRL, EOMI, mucous membranes and oropharynx normal. Neck--supple. No JVD. No bruits. Thyroid normal, trachea midline, no adenopathy. Heart--normal S1 and S2. No murmurs, rubs or gallops. Lungs--clear bilaterally, no respiratory distress, no accessory muscle use. Abdomen--normal bowel sounds and soft. Nontender. Nondistended. Extremities--no cyanosis or clubbing. No edema. Dermatologic--normal skin turgor, normal color, no abnormal lymph nodes, no rash. Neurologic--cranial nerves II through XII grossly intact. Rheumatologic--normal range of motion. Psychiatric--normal affect. Discharge Data Allergies Allergy/AdvReac Type Severity Reaction Status Date / Time metoprolol AdvReac Unknown GI SYMPTOMS Verified 01/23/20 14:51 Consultations 01/16/20 21:01 ED Decision to Admit Stat 01/17/20 01:51 Consult Cardiology Routine Consult Case Management - Discharge Planning Routine Hospital Course (1) Pericardial disease: Pericardial disease/anemia/progressive weakness- CT of abdomen pelvis performed as outpatient, suggestive of pericardial thickening and pericardial disease. Appreciate input from Cardio: -patient has had no symptoms of pericarditis. -no EKG changes suggestive of pericarditis. -would discontinue colchicine. Patient was COVID-19 negative while in the ED. We will order additional viral studies, including coxsackie B virus, parvovirus, EBV and CMV. These are positive for exposure. Assess for connective tissue disease with screening JACQUES: this was negative. will defer further workup to PCP (2) Weakness: See above (3) Anemia: See above Heme-negative in ED. (4) Pleural effusion, left: On and off, noted in April 2019. Noted again on chest x-ray 12/26/2019. Overall looks euvolemic, but will get cardiology opinion regarding cardiology contribution. Known interstitial lung disease. May get pulmonology consult as needed. defer to PCP/ (5) Coronary artery disease: CAD/hypertension/ischemic cardiomyopathy/chronic systolic heart failure/STEMI/stented coronary artery on April 2019 in [place]- Increasing aspirin dose as noted above. Continue carvedilol 12.5 mg p.o. twice daily, clopidogrel 75 mg p.o. every morning, furosemide 40 mg p.o. every morning and losartan 25 mg p.o. every morning (6) Chronic systolic (congestive) heart failure: (7) Ischemic cardiomyopathy: (8) RAKAN (obstructive sleep apnea): Patient will use own CPAP (9) Hyperlipidemia: Continue atorvastatin 40 mg at bedtime (10) Gastroesophageal reflux disease: Continue pantoprazole 40 mg daily Total Time Total Time Spent Total Time Spent (In Minutes): 32 Total Time Includes: Examination of the Patient, Discharge Planning and Medication Reconciliation Discharge Plan Discharge Items Patient Disposition: Home - Self-Care Reason For Visit: PERICARDITIS, ANEMIA, FATIGUE Discharge Diagnosis: pericarditis, anemia Activity: Resume your previous activity Non-emergency contact: Primary Care Provider Call non-emergency contact if: you have any medication questions Follow-up/Referrals: Jered Aquino MD [Primary Care Provider] - Diet: Regular Addtl Attending Provider Instructions: You have been hospitalized for an acute medical problem. During your stay at [facility], we have made an effort to correct the problem that brought you to the hospital while keeping you as comfortable as possible. Medications were used to bring your condition under control and your discharge instructions will include directions for any medications you should take after leaving the hospital. Please make sure you see your Primary Care Provider as part of your follow up plan. Recommend checking iron levels on sunday as well as hemoglobin. recommend close followup with PCP. will also hold saw palmetto Pending Studies at Discharge: No Stand-Alone Forms: My [facility], Smoking Cessation Medications and DC Order Prescriptions: Continued carvedilol 12.5 mg tablet 12.5 mg PO BID Qty: 180 RF: 3 lycopene 10 mg capsule 10 mg PO DAILY PRN (Reason: .) RF: 0 furosemide 40 mg tablet 40 mg PO QAM RF: 0 atorvastatin 40 mg tablet 40 mg PO HS RF: 0 clopidogrel 75 mg tablet 75 mg PO QAM RF: 0 aspirin 81 mg tablet,delayed release (DR/EC) 81 mg PO HS RF: 0 cyanocobalamin (vitamin B-12) 500 mcg tablet 500 mcg PO QAM RF: 0 pantoprazole 40 mg tablet,delayed release (DR/EC) 40 mg PO QAM RF: 0 losartan 25 mg tablet 25 mg PO QAM RF: 0 cholecalciferol (vitamin D3) 1,250 mcg (50,000 unit) capsule 50,000 unit PO WE RF: 0 Breo Ellipta 100-25 mcg/dose blister with device 1 inh inhalation QAM RF: 0 Discontinued saw palmetto 1 tab PO DAILY RF: 0 No Action fluticasone propionate [Flonase Allergy Relief] 50 mcg/actuation spray,suspension 2 spray intranasal DAILY PRNRF: 0 benzonatate [Tessalon Perles] 100 mg capsule 100 mg PO ONCE PRN (Reason: Congestion) Qty: 30 RF: 2 Discharge Orders: Discharge Order (Routine); Ordered 01/17/20 Ordered By: Matt Keys/Other Patient Handouts: Medicines for Heart Disease, Identifying Your Heart Risks Admission Data Admit Date/Time: 01/16/20 23:28 Attending Provider: Matt Le Admit Provider: Matt Le Primary Care Provider: Jered Aquino Other Providers: Matty Elizabeth ; Red Marie Other Interventions: Discharge Summary Assessment (RN) Last Done: 01/17/20 14:32 Coding Level of Care Code 22551 OBS Care - Discharge Diagnoses Pericardial disease I31.9 Weakness R53.1 Anemia D64.9 Anemia type: unspecified type Pleural effusion, left J90 Coronary artery disease I25.10 Chronic systolic (congestive) heart failure I50.22 Ischemic cardiomyopathy I25.5 RAKAN (obstructive sleep apnea) G47.33 Hyperlipidemia E78.5 Gastroesophageal reflux disease K21.9
== END 2020-01-17 15:15 | disposition home or self-care (01) ==
LOC: ED 19:18 → SUATTDRO 23:28 → 2S 23:28 → INTOOBSV 23:28 → 2S 01-17 01:01

== ENCOUNTER 2022-07-09 10:21 | Inpatient (IN) ==
[2022-07-09] MEDS ORDERED: SODIUM CHLORIDE 0.9% 1000ML 1,000 ML IV ONE (10:57)
--- NOTE | 2022-07-09 11:02 | Emergency Department Note ---
Impression & Plan Syncope, Altered mental status ED Provider Note Name: RETA ARRIOLA Age: 81 Sex: M Arrives Via: Ambulance Informant: Patient, ED Provider: Derek Alicea MD Chief Complaint: Altered mental status Impression: As per impressions above Medical Decision Makin-year-old gentleman with a history of pulmonary fibrosis, CKD, cardiomyopathy, hyperlipidemia, hypertension arrives for evaluation following a syncopal episode with transient altered mental status. notes that he was essentially unresponsive and there was some vague twitching of his face. No other seizure- like activity. Apparently had an irregular heartbeat per pulse check by physician that was at the [facility] she was out. Patient shortly thereafter started coming back to his normal self. On arrival patient appears a bit dehydrated. He was given IV fluids. He has no evidence of sepsis, stroke or other concerning findings at this time. Extensive work-up including D-dimer. D-dimer was positive so CT of the chest was obtained at the same time as CT head. Fortunately CT head and CT angio of the chest are unremarkable. Patient has been breathing comfortably and in no distress over the last few hours. He will require hospitalization for observation and cardiac rule out. Hospitalist consulted for further management Prior Medical Record and Triage/Nursing Notes reviewed by Me External chart reviewed by me Differentials:Vasovagal syncope, arrhythmia, ACS, PE, intracranial hemorrhage, stroke, seizure, electrolyte imbalance, anemia amongst many other pathologies considered Vital Signs: reviewed and remarkable for mild hypotension Interventions: 1 L normal saline bolus IV Labs:Reviewed and remarkable for elevated D-dimer Imagin view chest x-ray interpreted by me fibrotic changes throughout worse on the left CT of the head without contrast as per my informal interpretation. No acute intracranial hemorrhage or mass effect appreciated. Radiologist notes no acute finding. CT the chest with angio no PE or dissection as per radiologist. Pulmonary fibrosis noted. EKG:Indication syncope. As per my interpretation. Sinus bradycardia at 54 bpm with a PVC noted. QTc 417. No overt ischemia appreciated. When compared to EKG August 30, 2021 morphology is similar. Cardiac/Tele Monitoring: Cardiac Monitoring: An Order was placed for continuous cardiac monitoring. The monitor shows a rate of 55 with a sinus marian rhythm. Consults:Dr Jesús PRESLEY Hospitalist Plan: Disposition:Hospitalization. Condition: Good History of Present Illness:81-year-old male arrives for evaluation syncope. Patient was at [facility] this morning when he had lightheadedness and started looking off into the distance. states he was unresponsive though still breathing. He had a twitching face and did not seem his self. He was too weak to stand and they were able to get him in a wheelchair. A physician at [facility] noted his pulse was irregular and slow. Patient apparently started coming to his face was very flushed at the time. Patient now states he feels fine. He does note has been a bit tired the last 2 days. He admits he did not sleep well last night having had to get up to go to the bathroom several times but that is not necessarily unusual. His appetites been a little bit off recently as well. He recently started a new medicine for his interstitial lung disease which she has to take many pills a day. He believes he started this about a month ago but had to decrease the dose and then increase it again about a week ago due to running out of pills. Denies any current chest pain, shortness of breath, headache, neck pain, abdominal pain, back pain, palpitation, urinary/bowel symptoms, leg pain, calf swelling or other concerning signs or symptoms. Patient denies any history of DVT or PE. He does note that he was on a cruise on the [place] just 2 weeks ago. No known sick contacts. No medications prior to arrival Past History:Pulmonary fibrosis, hyperlipidemia, CAD, cardiomyopathy, CKD, GERD, sleep apnea Home Medications:Aspirin Plavix amongst multiple other medications. Allergies:metoprolol Vitals:Blood Pressure: 108/62, Pulse 51, RR 18, T 36.6C, O2 97% on RA Physical Exam: GENERAL: Patient is tired appearing and in no distress. EYES: No scleral icterus, unremarkable pupils. ENT: Mucous membranes dry, no nasal congestion. Mildly flushed face NECK: No masses appreciated, nomeningismus, trachea is midline. RESPIRATORY: No dyspnea. Clear to auscultation and equal bilaterally. No wheeze, no rhonchi. CARDIOVASCULAR: Regular rate and rhythm.No murmurs, rubs, gallops appreciated. GASTROINTESTINAL: Abdomen soft, non-tender, no peritonitis. EXTREMITIES: Normal motion all extremities, no cyanosis, no edema. NEUROLOGIC: Alert and oriented, no focal neurologic deficit appreciated NIH 0 SKIN: No rash, no jaundice, no diaphoresis. PSYCH: Appropriate GCS: 15 ED Course: Times/Reassessments: No distressed breathing comfortably and agreeable to hospitalization Derek Alicea MD Past Med/Surg History Medical History Abdominal pain, right lower quadrant Abnormal CT scan, lung Allergic rhinitis Basal cell carcinoma of skin Cholelithiasis Chronic anemia Chronic cough Chronic cough Chronic cough Chronic sinusitis Coronary artery disease Cough Coughing Enlarged prostate without lower urinary tract symptoms (luts) Environmental allergies Erectile dysfunction HTN (hypertension) Hyperlipidemia Interstitial lung disease Interstitial lung disease IPF (idiopathic pulmonary fibrosis) IPF (idiopathic pulmonary fibrosis) Non-productive cough Obstructive sleep apnea RAKAN (obstructive sleep apnea) Persistent cough Pleural effusion, left Pneumonia Squamous cell carcinoma of nose Wheezing Surgical History History of cardiac cath History of heart artery stent History of hernia repair History of Mohs surgery for squamous cell carcinoma of skin 11/2020 Dr Pritchard Family History Father Leukemia Prostate cancer Mother Breast cancer Diabetes Hypertension Brother Myocardial infarction Prostate cancer Diabetes Heart disease 2 BROTHERS Other Cancer No family history of adverse response to anesthesia No family history of bleeding disorder Denies family history of Ovarian cancer Lung cancer Colorectal cancer Social History Smoking Status: Never smoker Second Hand Exposure: No; Hx Alcohol Use: Yes Alcohol type: wine Alcohol Intake Frequency: 2-3 x/Week Hx Substance Use: No Preferred Language: Mongolian Communication Ability: Effective Visual Impairment: Diminished Hearing Ability: Normal Food Sampler Required: No Beliefs That Will Affect Care: None marital status: Current Living Situation: Spouse current occupational status: retired current occupation: retired How many Children do You have: 3 Feels Safe at Home: Yes Childhood Exposure to Second-Hand Smoke: Yes caffeine: No Dental Care, Regularly: Yes Physical Activity Frequency: 3-4 Times per Week Physical Activity Frequency Comment: bikes Seatbelt Use: always Sunscreen Use: No Allergies Allergies Allergy/AdvReac Type Severity Reaction Status Date / Time metoprolol AdvReac Unknown GI SYMPTOMS Verified 07/09/22 14:33 Home Meds Home Medications Medication Instructions Recorded Confirmed aspirin 81 mg tablet,delayed 81 mg PO HS 01/16/20 07/09/22 release cholecalciferol (vitamin D3) 50 50 mcg PO DAILY 03/18/20 07/09/22 mcg (2,000 unit) capsule Previous Rx's Medication Instructions Recorded CPAP Machine #1 ea 12/21/20 clopidogrel 75 mg tablet 75 mg PO QAM #90 tabs 08/29/21 losartan 25 mg tablet 25 mg PO QAM #90 tabs 08/29/21 atorvastatin 40 mg tablet See Rx Instructions .Route 09/27/21 .COMPLEX #90 tabs carvedilol 12.5 mg tablet 12.5 mg PO BID #180 tabs 09/28/21 meclizine 12.5 mg tablet 12.5 mg PO TID PRN dizziness #30 02/01/22 tabs fluticasone furoate 100 1 inh inhalation DAILY #60 ea 03/13/22 mcg-vilanterol 25 mcg/dose inhalation powder (Breo Ellipta) furosemide 40 mg tablet 40 mg PO QAM #90 tabs 06/06/22 pirfenidone 267 mg capsule 801 mg PO TID #270 caps 07/04/22 (Esbriet) Results & Data (ED) Vital Signs Vital Signs - 24 hr 07/09/22 10:26 07/09/22 10:36 07/09/22 10:36 Temperature 36.6 C Temperature Source Oral Pulse Rate 54 L Pulse Rate [Right Apical] 51 L Pulse Rate from SpO2 Sensor Respiratory Rate 18 18 Respiratory Effort / Characteristics Non-Labored Spontaneous Non-Labored Spontaneous Respiratory Depth Normal Normal Respiratory Pattern Regular Regular Blood Pressure 108/62 Blood Pressure [Right Arm] 108/62 Blood Pressure Mean 77 Blood Pressure Mean [Right Arm] 77 Pulse Oximetry 97 97 97 Oxygen Delivery Method Room Air Room Air Room Air Sepsis Recent Fever Within 48 Hours No Sepsis New/Unexplained Change in Mental Status No Sepsis Action Taken by Nursing No Action Required 07/09/22 11:00 07/09/22 11:30 07/09/22 12:07 Temperature Temperature Source Pulse Rate 63 68 51 L Pulse Rate [Right Apical] Pulse Rate from SpO2 Sensor 58 L 68 Respiratory Rate 19 13 Respiratory Effort / Characteristics Respiratory Depth Respiratory Pattern Blood Pressure 103/46 L 106/52 L Blood Pressure [Right Arm] Blood Pressure Mean 65 70 Blood Pressure Mean [Right Arm] Pulse Oximetry 93 98 Oxygen Delivery Method Room Air Room Air Sepsis Recent Fever Within 48 Hours Sepsis New/Unexplained Change in Mental Status Sepsis Action Taken by Nursing 07/09/22 12:00 07/09/22 12:30 07/09/22 13:30 Temperature Temperature Source Pulse Rate 61 69 52 L Pulse Rate [Right Apical] Pulse Rate from SpO2 Sensor 57 L 69 51 L Respiratory Rate 12 12 13 Respiratory Effort / Characteristics Respiratory Depth Respiratory Pattern Blood Pressure 104/59 L 109/57 L 114/62 Blood Pressure [Right Arm] Blood Pressure Mean 74 74 79 Blood Pressure Mean [Right Arm] Pulse Oximetry 99 98 97 Oxygen Delivery Method Room Air Room Air Room Air Sepsis Recent Fever Within 48 Hours Sepsis New/Unexplained Change in Mental Status Sepsis Action Taken by Nursing 07/09/22 14:00 07/09/22 14:30 07/09/22 16:15 Temperature Temperature Source Pulse Rate 70 80 85 Pulse Rate [Right Apical] Pulse Rate from SpO2 Sensor 72 79 Respiratory Rate 19 18 Respiratory Effort / Characteristics Respiratory Depth Respiratory Pattern Blood Pressure 113/76 114/69 Blood Pressure [Right Arm] Blood Pressure Mean 88 84 Blood Pressure Mean [Right Arm] Pulse Oximetry 98 98 Oxygen Delivery Method Room Air Room Air Sepsis Recent Fever Within 48 Hours Sepsis New/Unexplained Change in Mental Status Sepsis Action Taken by Nursing Laboratory Data 07/09/22 11:05 07/09/22 11:05 Lab Results 07/09/22 07/09/22 07/09/22 Range/Units 11:04 11:05 11:05 WBC 7.26 (4.8-10.8) K/ul RBC 3.74 L (4.70-6.10) M/uL Hgb 11.4 L (14.0-18.0) g/dl Hct 35.2 L (42.0-52.0) % MCV 94.1 (80.0-100.0) fL MCH 30.5 (25.0-34.0) pg MCHC 32.4 (32.0-36.0) g/dL RDW Std Deviation 46.3 (36.4-46.3) fL RDW Coeff of Marcelina 13.5 (11.5-14.5) % Plt Count 172 (130-400) K/uL MPV 9.8 (9.4-12.4) fL Immature Gran % (Auto) 0.3 % Neut % (Auto) 61.6 % Lymph % (Auto) 24.0 % Scott % (Auto) 10.1 % Eos % (Auto) 3.3 % Baso % (Auto) 0.7 % Neut # (Auto) 4.48 (1.40-6.50) K/uL Lymph # (Auto) 1.74 (1.2-3.4) K/uL Scott # (Auto) 0.73 H (0.11-0.59) K/uL Eos # (Auto) 0.24 (0-0.50) K/uL Baso # (Auto) 0.05 (0-0.2) K/uL Immature Gran # (Auto) 0.02 (0.01-0.20) K/uL D-Dimer 950 H* (0-500) ug/L FEU Sodium (136-145) mmol/L Potassium (3.5-5.1) mmol/L Chloride (98-107) mmol/L Carbon Dioxide (21-32) mmol/L Anion Gap (3-11) BUN (6-23) mg/dl Creatinine (0.6-1.4) mg/dl Est Cr Clr Drug Dosing ml/min Est GFR ( Amer) ml/min Est GFR (Non-Af Amer) ml/min BUN/Creatinine Ratio (10-20) Glucose (70-99(Fasting)) mg/dl Calcium (8.6-10.3) mg/dl Magnesium (1.7-2.4) mg/dl Total Bilirubin (0.2-1.0) mg/dl Direct Bilirubin AST (13-39) U/L ALT (7-52) U/L Alkaline Phosphatase (34-104) U/L Troponin I High Sens (0-20) pg/ml Total Protein (6.0-8.3) gm/dl Albumin (3.4-5.0) gm/dl SARS-CoV-2 (PCR) NEGATIVE (Negative) Influenza Type A (PCR) Negative (Neg) Influenza Type B (PCR) Negative (Neg) RSV (RT-PCR) Negative (Neg) 07/09/22 07/09/22 Range/Units 11:05 14:40 WBC (4.8-10.8) K/ul RBC (4.70-6.10) M/uL Hgb (14.0-18.0) g/dl Hct (42.0-52.0) % MCV (80.0-100.0) fL MCH (25.0-34.0) pg MCHC (32.0-36.0) g/dL RDW Std Deviation (36.4-46.3) fL RDW Coeff of Marcelina (11.5-14.5) % Plt Count (130-400) K/uL MPV (9.4-12.4) fL Immature Gran % (Auto) % Neut % (Auto) % Lymph % (Auto) % Scott % (Auto) % Eos % (Auto) % Baso % (Auto) % Neut # (Auto) (1.40-6.50) K/uL Lymph # (Auto) (1.2-3.4) K/uL Scott # (Auto) (0.11-0.59) K/uL Eos # (Auto) (0-0.50) K/uL Baso # (Auto) (0-0.2) K/uL Immature Gran # (Auto) (0.01-0.20) K/uL D-Dimer (0-500) ug/L FEU Sodium 139 (136-145) mmol/L Potassium 4.2 (3.5-5.1) mmol/L Chloride 105 (98-107) mmol/L Carbon Dioxide 28 (21-32) mmol/L Anion Gap 6 (3-11) BUN 38 H (6-23) mg/dl Creatinine 1.55 H (0.6-1.4) mg/dl Est Cr Clr Drug Dosing 37.3 ml/min Est GFR ( Amer) 47.3 ml/min Est GFR (Non-Af Amer) 40.8 ml/min BUN/Creatinine Ratio 24.5 H (10-20) Glucose 117 H (70-99(Fasting)) mg/dl Calcium 8.8 (8.6-10.3) mg/dl Magnesium 2.1 (1.7-2.4) mg/dl Total Bilirubin 0.4 (0.2-1.0) mg/dl Direct Bilirubin TNP 0.0 AST 25 (13-39) U/L ALT 16 (7-52) U/L Alkaline Phosphatase 101 (34-104) U/L Troponin I High Sens 10.5 (0-20) pg/ml Total Protein 7.2 (6.0-8.3) gm/dl Albumin 3.8 (3.4-5.0) gm/dl SARS-CoV-2 (PCR) (Negative) Influenza Type A (PCR) (Neg) Influenza Type B (PCR) (Neg) RSV (RT-PCR) (Neg) Administered Medications Discontinued Medications Sodium Chloride (Nss 1000ml) 1,000 mls @ 999 mls/hr IV .Q1H1M ONE Stop: 07/09/22 11:57 Last Infusion: 07/09/22 12:15 Dose: 0 mls/hr Documented By: Admin: 07/09/22 11:02 Dose: 999 mls/hr Documented By: JACIEL Ioversol (Optiray 320 500ml) 116 ml IV ONCE ONE Stop: 07/09/22 12:14 Last Admin: 07/09/22 12:13 Dose: 116 ml Documented By: EDK Imaging Data Radiologist's Impression: Head CT 07/09/22 10:57 CT head/brain wo con CLINICAL HISTORY: syncope Technique: Contiguous axial CT images of the head were acquired from the base of the skull to the vertex without intravenous contrast administration. Images were viewed in brain, subdural and bone windows. Automated dose lowering techniques and/or adjustment according to patient size were utilized for this exam. Comparison: Comparison is made to CT maxillofacial 10/06/2013 Findings: The ventricles, basal cisterns, and cerebral sulci are normal. There is no acute intracranial hemorrhage or evidence of acute territorial infarction. Neither mass effect, shift of the midline structures, nor abnormal extra-axial fluid collections are shown. Imaged portions of the paranasal sinuses and mastoid air cells are clear. The orbits appear normal. There are no acute fractures of the calvaria or scalp swelling. Impression: No acute intracranial hemorrhage, no evidence of acute territorial infarction or other acute intracranial disease process. ACT 112: Negative or not required by law. Electronically signed by: Ash Mas M.D. 07/09/2022 1:04 PM Chest X-Ray 07/09/22 10:58 XR chest 1V portable CLINICAL HISTORY: weakness TECHNIQUE: Single frontal radiograph of the chest was obtained. Comparison: Comparison is made to chest radiograph 08/30/2021 FINDINGS: No lines and tubes are seen. Cardiomegaly is noted. The aortic arch is calcified. Left pulmonary opacity is seen with leftward midline shift. Interstitial thickening is noted. No evidence of pleural effusion or pneumothorax. IMPRESSION: Interstitial thickening without evidence of acute abnormality. ACT 112: Negative or not required by law. Electronically signed by: Ash Mas M.D. 07/09/2022 11:17 AM Chest CTA 07/09/22 12:02 CT angio chest PE protocol CLINICAL HISTORY: PE TECHNIQUE: Multidetector row helical CT of the chest was performed with angiographic protocol. Coronal and sagittal reformations were obtained. Coronal and sagittal MIPS were obtained from the axial data set and were submitted for review. Automated dose lowering techniques and/or adjustment according to patient size were utilized for this exam. CT DOSE: 1070.47 mGy.cm Comparison: Comparison is made to CT head 03/10/2015 FINDINGS: Lungs and pleura: Peripheral fibrotic changes are seen with microcystic change, left greater than right, with left-sided volume loss. Heart and pericardium: Heart size is normal. No pericardial effusion. Vessels: No evidence of pulmonary embolism. Mediastinum and hammad: Unremarkable. Chest wall and lower neck: Unremarkable. Abdomen: Unremarkable. Bones: Unremarkable. IMPRESSION: 1. No pulmonary embolus is seen. 2. Fibrotic disease is again seen in the chest, slightly progressed from prior exam. ACT 112: Negative or not required by law. Electronically signed by: Ash Mas M.D. 07/09/2022 1:08 PM Discharge Plan Visit Data Chief Complaint: Syncope Stated Complaint: SYNCOPE ED Provider: Derek Alicea Discharge Problem: Syncope, Altered mental status Forms Stand Alone Forms: [facility] [employer] Prescriptions Prescriptions: No Action (DME) CPAP Machine Misc See Rx Instructions .Route Qty: 1 0RF Rx Instructions: As directed clopidogrel 75 mg tablet 75 mg PO QAM Qty: 90 3RF losartan 25 mg tablet 25 mg PO QAM Qty: 90 3RF Rx Instructions: TAKE 1 TABLET BY MOUTH EVERY DAY atorvastatin 40 mg tablet See Rx Instructions .ROUTE .COMPLEX Qty: 90 3RF Dose Instruction: TAKE 1 TABLET BY MOUTH EVERY DAY Rx Instructions: TAKE 1 TABLET BY MOUTH EVERY DAY carvedilol 12.5 mg tablet 12.5 mg PO BID Qty: 180 3RF fluticasone furoate-vilanterol [Breo Ellipta] 100-25 mcg/dose blister with device 1 inh inhalation DAILY Qty: 60 5RF furosemide 40 mg tablet 40 mg PO QAM Qty: 90 3RF Rx Instructions: TAKE 1 TABLET BY MOUTH EVERY DAY Esbriet 267 mg capsule 801 mg PO TID Qty: 270 3RF cholecalciferol (vitamin D3) 50 mcg (2,000 unit) capsule 50 mcg PO DAILY meclizine 12.5 mg tablet 12.5 mg PO TID PRN (Reason: dizziness) Qty: 30 0RF aspirin 81 mg tablet,delayed release (DR/EC) 81 mg PO HS Referrals Referrals: Jered Aquino MD [Primary Care Provider] -
--- NOTE | 2022-07-09 11:18 | XRay Report ---
XR chest 1V portable CLINICAL HISTORY: weakness TECHNIQUE: Single frontal radiograph of the chest was obtained. Comparison: Comparison is made to chest radiograph 08/30/2021 FINDINGS: No lines and tubes are seen. Cardiomegaly is noted. The aortic arch is calcified. Left pulmonary opac ity is seen with leftward midline shift. Interstitial thickening is noted. No evidence of pleural eff usion or pneumothorax. IMPRESSION: Interstitial thickening without evidence of acute abnormality. ACT 112: Negative or not required by law. Electronically signed by: Ash Mas M.D. 07/09/2022 11:17 AM
[2022-07-09 11:21] LABS: Basophils # (auto) 0.05 K/uL (0-0.2); Basophils % (auto) 0.7 %; Eosinophils # (auto) 0.24 K/uL (0-0.50); Eosinophils % (auto) 3.3 %; Hematocrit (blood only) 35.2 % (42.0-52.0); Hemoglobin 11.4 g/dl (14.0-18.0); Immature Granulocytes # (auto) 0.02 K/uL (0.01-0.20); Immature Granulocytes % (auto) 0.3 %; Lymphocytes # (auto) 1.74 K/uL (1.2-3.4); Mean Corpuscular Hemoglobin 30.5 pg (25.0-34.0); Mean Corpuscular Hgb Conc 32.4 g/dL (32.0-36.0); Mean Corpuscular Volume 94.1 fL (80.0-100.0); Mean Platelet Volume 9.8 fL (9.4-12.4); Monocytes # (auto) 0.73 K/uL (0.11-0.59); Monocytes % (auto) 10.1 %; Neutrophils # (auto) 4.48 K/uL (1.40-6.50); Neutrophils % (auto) 61.6 %; Platelet Count 172 K/uL (130-400); RDW Coefficient of Variation 13.5 % (11.5-14.5); RDW Standard Deviation 46.3 fL (36.4-46.3); Red Blood Count 3.74 M/uL (4.70-6.10); White Blood Count 7.26 K/ul (4.8-10.8)
[2022-07-09 11:45] LABS: Alanine Aminotransferase 16 U/L (7-52); Albumin Level 3.8 gm/dl (3.4-5.0); Alkaline Phosphatase 101 U/L (34-104); Anion Gap 6 (3-11); Aspartate Aminotransferase 25 U/L (13-39); BUN Creatinine Ratio 24.5 (10-20); Bilirubin,Total 0.4 mg/dl (0.2-1.0); Blood Urea Nitrogen 38 mg/dl (6-23); Calcium 8.8 mg/dl (8.6-10.3); Carbon Dioxide 28 mmol/L (21-32); Chloride 105 mmol/L (98-107); Creatinine Clr Calc Pharmacy 37.3 ml/min; Est GFR (African American) 47.3 ml/min; Est GFR (Non-African American) 40.8 ml/min; Glucose 117 mg/dl (70-99(Fasting)); Magnesium 2.1 mg/dl (1.7-2.4); Potassium 4.2 mmol/L (3.5-5.1); Sodium 139 mmol/L (136-145); Total Protein 7.2 gm/dl (6.0-8.3)
[2022-07-09 11:48] LABS: Troponin I High Sensitivity 10.5 pg/ml (0-20)
[2022-07-09 11:59] LABS: Influenza A virus by PCR Negative (Neg); Influenza B virus by PCR Negative (Neg); RSV by PCR Negative (Neg); SARS CoV2 RNA(COVID-19) Ceph NEGATIVE (Negative)
[2022-07-09 12:00] LABS: D Dimer 950 ug/L FEU (0-500)
[2022-07-09] MEDS ORDERED: OPTIRAY 320 500ml IV ONE (12:13)
--- NOTE | 2022-07-09 13:05 | CT Scan Report ---
CT head/brain wo con CLINICAL HISTORY: syncope Technique: Contiguous axial CT images of the head were acquired from the base of the skull to the jennifer camilo without intravenous contrast administration. Images were viewed in brain, subdural and [facility]. Automated dose lowering techniques and/or adjustment according to patient size were utilized for this exam. Comparison: Comparison is made to CT maxillofacial 10/06/2013 Findings: The ventricles, basal cisterns, and cerebral sulci are normal. There is no acute intracranial hemorrh age or evidence of acute territorial infarction. Neither mass effect, shift of the midline structures , nor abnormal extra-axial fluid collections are shown. Imaged portions of the paranasal sinuses and mastoid air cells are clear. The orbits appear normal. There are no acute fractures of the calvaria or scalp swelling. Impression: No acute intracranial hemorrhage, no evidence of acute territorial infarction or other acute intracra nial disease process. ACT 112: Negative or not required by law. Electronically signed by: Ash Mas M.D. 07/09/2022 1:04 PM
--- NOTE | 2022-07-09 13:10 | CT Scan Report ---
CT angio chest PE protocol CLINICAL HISTORY: PE TECHNIQUE: Multidetector row helical CT of the chest was performed with angiographic protocol. Dumont l and sagittal reformations were obtained. Coronal and sagittal MIPS were obtained from the axial zuleima a set and were submitted for review. Automated dose lowering techniques and/or adjustment according to patient size were utilized for this exam. CT DOSE: 1070.47 mGy.cm Comparison: Comparison is made to CT head 03/10/2015 FINDINGS: Lungs and pleura: Peripheral fibrotic changes are seen with microcystic change, left greater than rig ht, with left-sided volume loss. Heart and pericardium: Heart size is normal. No pericardial effusion. Vessels: No evidence of pulmonary embolism. Mediastinum and hammad: Unremarkable. Chest wall and lower neck: Unremarkable. Abdomen: Unremarkable. Bones: Unremarkable. IMPRESSION: 1. No pulmonary embolus is seen. 2. Fibrotic disease is again seen in the chest, slightly progressed from prior exam. ACT 112: Negative or not required by law. Electronically signed by: Ash Mas M.D. 07/09/2022 1:08 PM
--- NOTE | 2022-07-09 13:49 | History & Physical Report ---
Date of Service July 09, 2022 Assessment & Plan (1) Pre-syncope: Plan: 81 year old male with a past medical history of IPF (idiopathic pulmonary fibrosis), HTN, HLD, Chronic systolic CHF, (previous [place] Apr 2019 With [facility] in [place]), CKD, Zenkers Diverticulum, and severe sleep apnea on CPAP who presented to the ER via EMS with complaints of questionable syncope. Per patient and no LOC, no head injury and did not fall. - will admit - monitor on telemetry for any heart arrhythmias (2) IPF (idiopathic pulmonary fibrosis): Plan: - brought patient's Pirfenidone 267mg 3 pills TID with meals to have pharmacy label to give while here (3) HTN (hypertension): Plan: Stable Continue Carvedilol 12.5 mg BID, Losartan 25mg qd Furosemide held (4) Hyperlipidemia: Plan: chronic and stable continue atorvastatin 40mg (5) Severe obstructive sleep apnea: Plan: - continue CPAP (6) Chronic systolic (congestive) heart failure: Plan: - Patient follows with Dr Marie and last Echo was 02/2022 with EF 40-45% History of Present Illness Chief Complaint: Syncope Primary Care Provider: Jered Aquino MD Delonte Dee is an 81 year old male with a past medical history of IPF (idiop athic pulmonary fibrosis), HTN, HLD, CAD, previous [place] 3 years ago, CKD, Zenkers Diverticulum, and severe sleep apnea on CPAP who presented to the ER via EMS with complaints of questionable syncope. Patient tells me that he generally was feeling "lousy" x 2 days and was a [employer]s at [employer] and had to get up extra early and felt he did not sleep as well last night and was extra tired and fatigued today. He states he was standing and singing at [employer] this AM and took some cough drops and then sat down. He tells me he was flushed and felt fatigued but was alert and oriented the whole time. His tells me that he sat down and his face was flushed and he was not responding to her or talking. and she motioned to the piotr in front of them to get the wheel chair and they took him into the vestibule. There were 2 doctors present who evaluated patient and per the patient told him his pulse was slow and within a few minutes his heart rate returned to normal. He states currently he is feeling fine. He denies any SOB, chest pain, dyspnea or diaphoresis. He states he ate a normal breakfast this AM prior to [employer] but feels he hasn't been drinking enough fluid. He admits to slight nausea this AM but no vomiting. Patient tells me that he was recently started on Pirfenidone about 6 weeks ago and was increased and has been on 3 pills TID with food for the past month. He states last week he had a follow up for his IPF and it was decided to continue the medication. Currently patient's vital signs are stable. CBC revealed a Hgb 11.4 and Hct 35.4 Patient's average Hgb is 9-11 over the past 2 years. BUN 38 and creatinine 1.55 up slightly from patient's average Cr 1.35 - 1.45. D Dimer was elevated at 950. CTA chest revealed no PE, fibrotic disease slightly progressed from prior. CT head no acute changes and no intracranial hemorrhage. CXR with interstitial thickening without evidence of acute abnormality. Influenza A and B, COVID and RSV all negative. Allergies Allergy/AdvReac Type Severity Reaction Status Date / Time metoprolol AdvReac Unknown GI SYMPTOMS Verified 07/09/22 14:33 Home Medications Medication Instructions Recorded Confirmed Type aspirin 81 mg tablet,delayed 81 mg PO HS 01/16/20 07/09/22 History release cholecalciferol (vitamin D3) 50 50 mcg PO DAILY 03/18/20 07/09/22 History mcg (2,000 unit) capsule CPAP Machine #1 ea 12/21/20 07/04/22 Rx clopidogrel 75 mg tablet 75 mg PO QAM #90 tabs 08/29/21 07/09/22 Rx losartan 25 mg tablet 25 mg PO QAM #90 tabs 08/29/21 07/09/22 Rx atorvastatin 40 mg tablet See Rx Instructions .Route 09/27/21 07/09/22 Rx .COMPLEX #90 tabs carvedilol 12.5 mg tablet 12.5 mg PO BID #180 tabs 09/28/21 07/09/22 Rx meclizine 12.5 mg tablet 12.5 mg PO TID PRN dizziness #30 02/01/22 07/09/22 Rx tabs fluticasone furoate 100 1 inh inhalation DAILY #60 ea 03/13/22 07/09/22 Rx mcg-vilanterol 25 mcg/dose inhalation powder (Breo Ellipta) furosemide 40 mg tablet 40 mg PO QAM #90 tabs 06/06/22 07/09/22 Rx pirfenidone 267 mg capsule 801 mg PO TID #270 caps 07/04/22 07/09/22 Rx (Esbriet) Past Med/Surg History Medical History Abdominal pain, right lower quadrant Abnormal CT scan, lung Allergic rhinitis Basal cell carcinoma of skin Cholelithiasis Chronic anemia Chronic cough Chronic cough Chronic cough Chronic sinusitis Coronary artery disease Cough Coughing Enlarged prostate without lower urinary tract symptoms (luts) Environmental allergies Erectile dysfunction HTN (hypertension) Hyperlipidemia Interstitial lung disease Interstitial lung disease IPF (idiopathic pulmonary fibrosis) IPF (idiopathic pulmonary fibrosis) Non-productive cough Obstructive sleep apnea RAKAN (obstructive sleep apnea) Persistent cough Pleural effusion, left Pneumonia Squamous cell carcinoma of nose Wheezing Surgical History History of cardiac cath History of heart artery stent History of hernia repair History of Mohs surgery for squamous cell carcinoma of skin 11/2020 Dr Pritchard Family History Father Leukemia Prostate cancer Mother Breast cancer Diabetes Hypertension Brother Myocardial infarction Prostate cancer Diabetes Heart disease 2 BROTHERS Other Cancer No family history of adverse response to anesthesia No family history of bleeding disorder Denies family history of Ovarian cancer Lung cancer Colorectal cancer Social History Smoking Status: Never smoker Second Hand Exposure: No; Hx Alcohol Use: Yes Alcohol type: wine Alcohol Intake Frequency: 2-3 x/Week Hx Substance Use: No Preferred Language: Vietnamese Communication Ability: Effective Visual Impairment: Diminished Hearing Ability: Normal Cotton Dispatcher Required: No Beliefs That Will Affect Care: None marital status: Current Living Situation: Spouse current occupational status: retired current occupation: retired How many Children do You have: 3 Feels Safe at Home: Yes Childhood Exposure to Second-Hand Smoke: Yes caffeine: No Dental Care, Regularly: Yes Physical Activity Frequency: 3-4 Times per Week Physical Activity Frequency Comment: bikes Seatbelt Use: always Sunscreen Use: No Review of Systems Review of Systems: Patient denies any LOC, Chest pain, SOB, Dyspnea, diaphoresis, vomiting. All other ROS negative unless stated positive as in the HPI Physical Exam Constitutional: WD/WN, vitals as above Neck: trachea midline, no thyromegaly Respiratory: normal respiratory effort, lungs clear to auscultation Cardiovascular: RRR, no murmur, no edema Extremities: no calf tenderness and no edema Gastrointestinal (Abdomen): normal bowel sounds, soft, nontender, no hepatosplenomegaly Skin: no rashes, warm and dry esthela left upper back Neurologic: PERRL, EOMI, accommodation nl, no face palsy, no dysarthria Psychiatric: A+Ox3, euthymic affect Results & Data Results & Data Vital Signs (Past 12 Hours) Vital Signs Temp Pulse Pulse Resp BP BP Pulse Ox 07/09/22 13:30 52 L 13 114/62 97 07/09/22 12:30 69 12 109/57 L 98 07/09/22 12:00 61 12 104/59 L 99 07/09/22 12:07 51 L 07/09/22 11:30 68 13 106/52 L 98 07/09/22 11:00 63 19 103/46 L 93 07/09/22 10:36 51 L 18 108/62 97 07/09/22 10:36 97 07/09/22 10:26 36.6 C 54 L 18 108/62 97 O2 Del Method 07/09/22 13:30 Room Air 07/09/22 12:30 Room Air 07/09/22 12:00 Room Air 07/09/22 12:07 07/09/22 11:30 Room Air 07/09/22 11:00 Room Air 07/09/22 10:36 Room Air 07/09/22 10:36 Room Air 07/09/22 10:26 Room Air Laboratory Results Abnormal lab results 07/09/22 07/09/22 07/09/22 Range/Units 11:05 11:05 11:05 RBC 3.74 L (4.70-6.10) M/uL Hgb 11.4 L (14.0-18.0) g/dl Hct 35.2 L (42.0-52.0) % [place] # (Auto) 0.73 H (0.11-0.59) K/uL D-Dimer 950 H* (0-500) ug/L FEU BUN 38 H (6-23) mg/dl Creatinine 1.55 H (0.6-1.4) mg/dl BUN/Creatinine Ratio 24.5 H (10-20) Glucose 117 H (70-99(Fasting)) mg/dl Diagnostic Findings Head CT 07/09/22 10:57 CT head/brain wo con CLINICAL HISTORY: syncope Technique: Contiguous axial CT images of the head were acquired from the base of the skull to the vertex without intravenous contrast administration. Images were viewed in brain, subdural and bone windows. Automated dose lowering techniques and/or adjustment according to patient size were utilized for this exam. Comparison: Comparison is made to CT maxillofacial 10/06/2013 Findings: The ventricles, basal cisterns, and cerebral sulci are normal. There is no acute intracranial hemorrhage or evidence of acute territorial infarction. Neither mass effect, shift of the midline structures, nor abnormal extra-axial fluid collections are shown. Imaged portions of the paranasal sinuses and mastoid air cells are clear. The orbits appear normal. There are no acute fractures of the calvaria or scalp swelling. Impression: No acute intracranial hemorrhage, no evidence of acute territorial infarction or other acute intracranial disease process. ACT 112: Negative or not required by law. Electronically signed by: Ash Mas M.D. 07/09/2022 1:04 PM Chest X-Ray 07/09/22 10:58 XR chest 1V portable CLINICAL HISTORY: weakness TECHNIQUE: Single frontal radiograph of the chest was obtained. Comparison: Comparison is made to chest radiograph 08/30/2021 FINDINGS: No lines and tubes are seen. Cardiomegaly is noted. The aortic arch is calcified. Left pulmonary opacity is seen with leftward midline shift. Interstitial thickening is noted. No evidence of pleural effusion or pneumothorax. IMPRESSION: Interstitial thickening without evidence of acute abnormality. ACT 112: Negative or not required by law. Electronically signed by: Ash Mas M.D. 07/09/2022 11:17 AM Chest CTA 07/09/22 12:02 CT angio chest PE protocol CLINICAL HISTORY: PE TECHNIQUE: Multidetector row helical CT of the chest was performed with angiographic protocol. Coronal and sagittal reformations were obtained. Coronal and sagittal MIPS were obtained from the axial data set and were submitted for review. Automated dose lowering techniques and/or adjustment according to patient size were utilized for this exam. CT DOSE: 1070.47 mGy.cm Comparison: Comparison is made to CT head 03/10/2015 FINDINGS: Lungs and pleura: Peripheral fibrotic changes are seen with microcystic change, left greater than right, with left-sided volume loss. Heart and pericardium: Heart size is normal. No pericardial effusion. Vessels: No evidence of pulmonary embolism. Mediastinum and hammad: Unremarkable. Chest wall and lower neck: Unremarkable. Abdomen: Unremarkable. Bones: Unremarkable. IMPRESSION: 1. No pulmonary embolus is seen. 2. Fibrotic disease is again seen in the chest, slightly progressed from prior exam. ACT 112: Negative or not required by law. Electronically signed by: Ash Mas M.D. 07/09/2022 1:08 PM Code Status & VTE Plan Code Status Full Code Supervising Physician Co-Signing Physician Notes Patient seen and examined, chart reviewed, case discussed with Krysten Puentes PA-C and I agree with the assessment and plan as above except as otherwise noted Labs and images reviewed Delonte is a 81-year-old male with a history of IPF, hypertension, hyperlipidemia, RAKAN, [place], and severe sleep apnea on CPAP who presented with concerns of syncope while at [employer]. Initially reported that he had a unresponsive episode concerning for vasovagal syncope at [employer] with an irregular heart rate. Per patient he reports he did not lose consciousness completely and was flushed and fatigued and felt very tired, but never lost consciousness and where was happening the entire time. Will observe overnight for arrhythmia given reports of irregular heartbeat during episode, suspicious patient may have had an episode of vasovagal syncope in the setting of dehydration. Blood pressure initially low but significantly improved following 1 L of fluid. RRR, lungs clear, skin warm and well-perfused, no distress agree with management above PG Care Time/CCT Total # of Minutes Spent Total Time Spent with Patient: Total time spent is greater than 50% in coordination of care (as documented) at patient's floor/unit and/or counseling patient: Coding Level of Care Code 78939 INT INP/OBS CARE 2/55MIN Diagnoses Pre-syncope R55 IPF (idiopathic pulmonary fibrosis) J84.112 HTN (hypertension) I10 Hyperlipidemia E78.5 Severe obstructive sleep apnea G47.33 Chronic systolic (congestive) heart failure I50.22
[2022-07-09] MEDS ORDERED: ONDANSETRON INJ 2 MG/ML 2 ML VIAL IV PRN ×2 (19:27)
[2022-07-09] MEDS ORDERED: ACETAMINOPHEN 325 MG TAB PO PRN ×2 (19:27)
[2022-07-09] MEDS ORDERED: NITROGLYCERIN SL 0.4 MG/TAB TAB SL PRN (19:27)
[2022-07-09] MEDS ORDERED: POLYETHYLENE (MIRALAX) 17 GM PACK PO PRN ×2 (19:27)
[2022-07-09] MEDS ORDERED: ASPIRIN 81 MG ECTAB PO SCH (21:00)
[2022-07-09] MEDS: carvediloL 12.5 MG TAB PO SCH (21:07)
[2022-07-09] MEDS: PIRFENIDONE 267 MG PO SCH (21:07)
[2022-07-09] MEDS: ATORVASTATIN 40 MG TAB PO SCH (21:08)
[2022-07-09 21:27] LABS: Appearance Urine Clear (Clear); Bilirubin Urine Negative (Negative); Blood Urine Negative (Negative); Color Urine Yellow; Glucose Urine UA Negative (Negative); Ketones Urine Negative (Negative); Leukocyte Esterase Urine Negative (Negative); Nitrite Urine Negative (Negative); Protein Urine Negative (Negative); Specific Gravity Urine 1.028 (1.000-1.030); Urobilinogen Urine Negative (Negative); pH Urine 5.5 (4.5-7.5)
[2022-07-10 07:37] LABS: Hematocrit (blood only) 32.6 % (42.0-52.0); Hemoglobin 10.5 g/dl (14.0-18.0); Mean Corpuscular Hemoglobin 30.3 pg (25.0-34.0); Mean Corpuscular Hgb Conc 32.2 g/dL (32.0-36.0); Mean Corpuscular Volume 94.2 fL (80.0-100.0); Mean Platelet Volume 9.6 fL (9.4-12.4); Platelet Count 156 K/uL (130-400); RDW Coefficient of Variation 13.7 % (11.5-14.5); RDW Standard Deviation 47.2 fL (36.4-46.3); Red Blood Count 3.46 M/uL (4.70-6.10); White Blood Count 8.31 K/ul (4.8-10.8)
[2022-07-10] MEDS: carvediloL 12.5 MG TAB PO SCH (08:00)
[2022-07-10] MEDS: ATORVASTATIN 40 MG TAB PO SCH (08:00)
[2022-07-10] MEDS: PIRFENIDONE 267 MG PO SCH ×2 (08:00→11:51)
--- NOTE | 2022-07-10 08:30 | Electrocardiogram Report ---
Test Reason : Blood Pressure : / mmHG Vent. 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
[2022-07-10] MEDS ORDERED: FLUTICASONE/VILANTEROL 100/25MCG 14 PUFFS/INHALER INH SCH (09:00)
[2022-07-10] MEDS ORDERED: CLOPIDOGREL BISULFATE 75 MG TAB PO SCH (09:00)
[2022-07-10] MEDS ORDERED: LOSARTAN POTASSIUM 25 MG TAB PO SCH (09:00)
[2022-07-10] MEDS ORDERED: CHOLECALCIFEROL 1,000 UNITS 25 MCG TAB PO SCH (09:00)
[2022-07-10 11:22] LABS: Calcium 8.6 mg/dl (8.6-10.3); Potassium 4.4 mmol/L (3.5-5.1)
[2022-07-10 11:28] LABS: BUN Creatinine Ratio 19.4 (10-20); Creatinine Clr Calc Pharmacy 41.6 ml/min; Est GFR (African American) 53.9 ml/min; Est GFR (Non-African American) 46.5 ml/min
--- NOTE | 2022-07-10 11:55 | Discharge Summary ---
Date of Service July 10, 2022 Admission HPI Per Admitting Provider Delonte Dee is an 81 year old male with a past medical history of IPF (idiopathic pulmonary fibrosis), HTN, HLD, CAD, previous [place] 3 years ago, CKD, Zenkers Diverticulum, and severe sleep apnea on CPAP who presented to the ER via EMS with complaints of questionable syncope. 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 He states he was standing and singing at [employer] this AM and took some cough drops and then sat down. He tells me he was flushed and felt fatigued but was alert and oriented the whole time. His tells me that he sat down and his face was flushed and he was not responding to her or talking. and she motioned to the piotr in front of them to get the wheel chair and they took him into the vestibule. There were 2 doctors present who evaluated patient and per the patient told him his pulse was slow and within a few minutes his hea rt rate returned to normal. He states currently he is feeling fine. He denies any SOB, chest pain, dyspnea or diaphoresis. He states he ate a normal breakfast this AM prior to [employer] but feels he hasn't been drinking enough fluid. He admits to slight nausea this AM but no vomiting. Patient tells me that he was recently started on Pirfenidone about 6 weeks ago and was increased and has been on 3 pills TID with food for the past month. He states last week he had a follow up for his IPF and it was decided to continue the medication. Currently patient's vital signs are stable. CBC revealed a Hgb 11.4 and Hct 35.4 Patient's average Hgb is 9-11 over the past 2 years. BUN 38 and creatinine 1.55 up slightly from patient's average Cr 1.35 - 1.45. D Dimer was elevated at 950. CTA chest revealed no PE, fibrotic disease slightly progressed from prior. CT head no acute changes and no intracranial hemorrhage. CXR with interstitial thickening without evidence of acute abnormality. Influenza A and B, COVID and RSV all negative. Principal Diagnosis Suspected orthostatic hypotension, near syncope Discharge Exam General-alert and oriented x3, no fevers, no chills HEENT-head atraumatic and normocephalic, pupils equal and reactive to light, extraocular muscles intact Neck-no lymphadenopathy or thyromegaly, trachea midline Chest-coarse interstitial rales bilaterally. No wheezing Cardiac-regular rate and rhythm, normal S1 and S2 Abdomen-normal bowel sounds, nontender, no hepatosplenomegaly Extremities-no cyanosis, clubbing, or edema Neuro-cranial nerves II through XII intact, motor and sensory function within normal limits, strength symmetrical , no focal deficits Psych-normal affect, normal mood Discharge Data Allergies Allergy/AdvReac Type Severity Reaction Status Date / Time metoprolol AdvReac Unknown GI SYMPTOMS Verified 07/09/22 14:33 Consultations 07/09/22 13:56 ED Decision to Admit Stat Ordered Studies 07/09/22 10:57 CT head/brain wo con Stat 07/09/22 12:02 CT angio chest PE protocol Stat Hospital Course (1) Pre-syncope: Thought to be due to orthostatic hypotension while standing up in [employer]. No history of seizure activity. Head CT scan negative. He is on room air. Influenza a and B-. Respiratory syncytial virus negative. COVID-negative. Physical therapy evaluation unremarkable. Home today. (2) IPF (idiopathic pulmonary fibrosis): Pirfenidone 267mg 3 pills TID with meals. Outpatient follow-up with pulmonary medicine. Stable (3) HTN (hypertension): Stable . Continue Carvedilol 12.5 mg BID, Losartan 25mg qd. Furosemide held on admission. Will restart at discharge (4) Hyperlipidemia: chronic and stable. Continue atorvastatin 40mg (5) Severe obstructive sleep apnea: continue CPAP use. Stable (6) Chronic systolic (congestive) heart failure: Patient follows with Dr Marie and last Echo was 02/2022 with EF 40-45%. Currently stable. Continue current medical management Plan Home today, July 10. Medications remain the same Total Time Total Time Spent Total Time Spent (In Minutes): 40 minutes Discharge Plan Discharge Items Patient Disposition: Home - Self-Care Reason For Visit: PRESYNCOPE Discharge Diagnosis: Suspected orthostatic hypotension, near syncope Activity: Resume your previous activity Non-emergency contact: Primary Care Provider Call non-emergency contact if: your symptoms worsen Follow-up/Referrals: Jered Aquino MD [Primary Care Provider] - Diet: Regular and Heart Healthy Addtl Attending Provider Instructions: Check blood pressure twice daily and keep a record to show your physician. All medications remain the same Pending Studies at Discharge: No Stand-Alone Forms: My [facility] [employer], Smoking Cessation Medications and DC Order Prescriptions: New nitroglycerin [Nitrostat] 0.4 mg Tablet, Sublingual 0.4 mg sublingual UD PRNQty: 0 0RF Continued (DME) CPAP Machine Misc See Rx Instructions .Route Qty: 1 0RF Rx Instructions: As directed clopidogrel 75 mg tablet 75 mg PO QAM Qty: 90 3RF losartan 25 mg tablet 25 mg PO QAM Qty: 90 3RF Rx Instructions: TAKE 1 TABLET BY MOUTH EVERY DAY atorvastatin 40 mg tablet See Rx Instructions .ROUTE .COMPLEX Qty: 90 3RF Dose Instruction: TAKE 1 TABLET BY MOUTH EVERY DAY Rx Instructions: TAKE 1 TABLET BY MOUTH EVERY DAY carvedilol 12.5 mg tablet 12.5 mg PO BID Qty: 180 3RF fluticasone furoate-vilanterol [Breo Ellipta] 100-25 mcg/dose blister with device 1 inh inhalation DAILY Qty: 60 5RF furosemide 40 mg tablet 40 mg PO QAM Qty: 90 3RF Rx Instructions: TAKE 1 TABLET BY MOUTH EVERY DAY Esbriet 267 mg capsule 801 mg PO TID Qty: 270 3RF cholecalciferol (vitamin D3) 50 mcg (2,000 unit) capsule 50 mcg PO DAILY meclizine 12.5 mg tablet 12.5 mg PO TID PRN (Reason: dizziness) Qty: 30 0RF aspirin 81 mg tablet,delayed release (DR/EC) 81 mg PO HS Discharge Orders: Discharge Order (Routine); Ordered 07/10/22 Ordered By: Alonso Ibrahim Admission Data Admit Date/Time: 07/09/22 17:30 Attending Provider: Alonso Ibrahim Admit Provider: Jered Espinosa Primary Care Provider: Jered Aquino Other Providers: Jered Espinosa Coding Level of Care Code 95858 INP/OBS DISCH >30 MIN Diagnoses Pre-syncope R55 IPF (idiopathic pulmonary fibrosis) J84.112 HTN (hypertension) I10 Hyperlipidemia E78.5 Severe obstructive sleep apnea G47.33 Chronic systolic (congestive) heart failure I50.22
== END 2022-07-10 12:32 | disposition home or self-care (01) | DRG 312 ==
LOC: ED 10:21 → SUATTDRO 17:30 → 2S 17:30

== ENCOUNTER 2024-05-28 15:06 | Observation (INO) ==
[2024-05-28 15:39] LABS: Basophils # (auto) 0.02 K/uL (0.00-0.20); Basophils % (auto) 0.4 %; Eosinophils # (auto) 0.22 K/uL (0.00-0.50); Eosinophils % (auto) 4.1 %; Hematocrit (blood only) 32.9 % (42.0-52.0); Hemoglobin 10.4 g/dl (14.0-18.0); Immature Granulocytes # (auto) 0.02 K/uL (0.01-0.20); Immature Granulocytes % (auto) 0.4 %; Lymphocytes % (auto) 29.8 %; Mean Corpuscular Hgb Conc 31.6 g/dL (32.0-36.0); Mean Corpuscular Volume 94.8 fL (80.0-100.0); Mean Platelet Volume 9.3 fL (9.4-12.4); Monocytes # (auto) 0.66 K/uL (0.11-0.59); Monocytes % (auto) 12.3 %; Neutrophils # (auto) 2.85 K/uL (1.40-6.50); Platelet Count 147 K/uL (130-400); RDW Coefficient of Variation 14.8 % (11.5-14.5); RDW Standard Deviation 51.9 fL (36.4-46.3); Red Blood Count 3.47 M/uL (4.70-6.10); White Blood Count 5.37 K/ul (4.8-10.8)
--- NOTE | 2024-05-28 15:49 | Emergency Department Note ---
Impression & Plan Syncope, Amnesia, Acute head trauma, Laceration of scalp ED Provider Note NAME: RETA ARRIOLA AGE: 83 SEX: M : 1940 ARRIVES VIA: Ambulance INFORMANT: [Patient][family, ems] ED PROVIDER(S): [Efraín Aguilar MD] CHIEF COMPLAINT: Fall HISTORY OF PRESENT ILLNESS: The patient is an 83-year-old male who takes Plavix and aspirin. He has been coughing for 2 or 3 days and initially, started with a low-grade fever. The fever though seems to be improved. Today, the patient felt dizzy and weak. He was apparently, getting off the toilet just a short time ago when he had a syncopal event and struck the back of his head. He does not really remember much about what happened. He cannot recall having any chest pain or shortness of breath. He states that he does not have any current discomfort in the head, neck, back, chest or abdomen. As per report, there is a laceration to the posterior scalp. The patient states his tetanus is current. PMHx/PSHx/Social Hx: See Below PHYSICAL EXAM: Primary Survey Airway: Intact Breathing: Breath sounds equal bilaterally. No respiratory distress Circulation: Skin warm, capillary refill less than 2 seconds Disability: Pupils equal and reactive to light Motor Function: Moves all extremities. Sensory: No deficits Secondary Survey GEN: Well developed and well-nourished, mucous membranes dry HEAD: Pressure dressing type bandage wrapped around his head. When the dressing was removed, there was a V shaped 5 cm laceration to the posterior right scalp. Subtle oozing of blood. No bony step-offs, no hematoma. EYES: Pupils round and reactive to light, conjunctiva clear, extraocular movements intact ENT: No fluid in external acoustic canals, nares patent, oropharynx clear NECK: Midline trachea, stiff collar in place. HEART: Regular rate and rhythm LUNGS: A few scattered crackles heard, no wheezing or respiratory distress. CHEST: Chest wall non-tender, no bruising/deformity ABD: No contusions, soft, non-tender, no distention PELVIS: Stable to rock BACK: No step offs or deformities, T-L spine non tender EXT: Moving all extremities well, no gross deformities NEURO: No focal motor deficits, no sensory deficits DIFFERENTIAL DIAGNOSIS: Intracranial bleeding, skull fracture, C-spine injury, viral illness, dehydration, UTI, electrolyte imbalance, anemia, among others. EMERGENCY DEPARTMENT PROCEDURES: Laceration repair: This procedure was performed by me. The 5 cm V-shaped wound was prepped and draped in sterile fashion. The area was anesthetized with lidocaine, 10 cc. Using saline it was cleansed thoroughly. No foreign debris was noted. The wound was visualized and explored to its deepest regions. There was no nervous, deep structure, or tendon involvement. Using sterile technique the wound was closed. There were no complications. The area was then dressed. The patient tolerated the procedure well. Number of edmundo: 7 MEDICAL DECISION MAKING: There is no leukocytosis. There is a mild anemia, this appears baseline though looking back at recent testing. There was a normal platelet count. No coagulopathy. Patient does have some renal insufficiency, this appears baseline. There were some subtle liver enzyme elevations. ECG shows a sinus rhythm, no ischemia. Cardiac enzyme testing x 1 is not consistent with acute cardiac injury. Urinalysis shows some ketones, consistent with dehydration. No infection. Respiratory bio fire was positive for influenza A. Chest x-ray shows some chronic change, no focal pneumonia. Brain CT showed no acute bleed or mass effect. C-spine CT showed no acute fracture. On exam, patient did have a posterior scalp laceration, he appeared dehydrated clinically. He was amnestic of what actually had happened prior to arrival. Patient received IV saline, 1 L. His scalp laceration was repaired as noted above. Given the amnesia, given the unknown cause for the syncope, given his influenza, given his dehydration and scalp laceration, hospitalization was felt indicated. I did speak with the patient and his family. I spoke with case management. The on-call hospitalist was consulted. Prior/Outside records/notes reviewed: Today's EMS notes describing his presentation and transport to this hospital. ECG per my interpretation: Indication was syncope. The ECG shows a normal sinus rhythm with a rate of 67. There looks to be an old septal infarct. There is some baseline artifact. No PVCs, no ST elevation. The QTc is 426. Continuous Cardiac Monitoring per my interpretation: An order was placed for continuous cardiac monitoring. The monitor shows a rate of 68 with normal sinus rhythm. Imaging/x-ray results per my interpretation: Chest x-ray shows parenchymal congestion consistent with his pulmonary fibrosis, no focal infiltrate. Chronic Medical/Social conditions affecting care: Advanced age. Care/Management discussed with: Case management, the on-call hospitalist. Level of care consideration(s): After review of the information above and other included data: --I believe the patient requires escalation of care to admission DISPOSITION: Admission Past Med/Surg History Problem List (Updated 05/29/24 @ 00:40 by Efraín Aguilar MD) Laceration of scalp (Acute) Acute head trauma (Acute) Amnesia (Acute) Syncope (Acute) Transaminitis Influenza A Influenza Syncope History of prostate cancer Gout Urinary frequency Sensorineural hearing loss (SNHL) of both ears Vitamin D deficiency Allergy status to unspecified drugs, medicaments and biological substances Drug rash Phototoxicity due to sun Coronary artery disease Chronic anemia Ischemic cardiomyopathy CKD (chronic kidney disease), stage III History of heart artery stent Osteoarthrosis, hip, localized (Acute) Gastroesophageal reflux disease (Acute) Weakness (Acute) PVD (peripheral vascular disease) Elevated PSA [place] diverticulum IPF (idiopathic pulmonary fibrosis) Chronic cough Nocturnal hypoxemia Pre-syncope Altered mental status (Acute) Medical History Prostate cancer (03/06/23) Cerumen in auditory canal on examination IPF (idiopathic pulmonary fibrosis) Severe obstructive sleep apnea Chronic cough Obstructive sleep apnea Chronic cough Cough Non-productive cough Squamous cell carcinoma of nose Interstitial lung disease Allergic rhinitis Environmental allergies Pleural effusion, left Abnormal CT scan, lung Basal cell carcinoma of skin Chronic sinusitis Enlarged prostate without lower urinary tract symptoms (luts) Erectile dysfunction Interstitial lung disease Coughing Chronic systolic (congestive) heart failure RAKAN (obstructive sleep apnea) Wheezing Pneumonia Persistent cough Cholelithiasis Abdominal pain, right lower quadrant Hyperlipidemia HTN (hypertension) Surgical History History of hernia repair History of Mohs surgery for squamous cell carcinoma of skin History of cardiac cath Family History Father Leukemia Prostate cancer Mother Breast cancer Diabetes Hypertension Brother Myocardial infarction Prostate cancer Diabetes Heart disease Other Cancer No family history of adverse response to anesthesia No family history of bleeding disorder Denies family history of Ovarian cancer Lung cancer Colorectal cancer Social History Smoking Status: Never smoker Second Hand Exposure: No; Do You Dip or Chew Tobacco: No; Hx Alcohol Use: No Hx Substance Use: No Preferred Language: Citizen Of [place] Communication Ability: Effective Visual Impairment: No Limitations Hearing Ability: Normal Per Diem Registered Nurse Required: No Beliefs That Will Affect Care: None marital status: Current Living Situation: Spouse current occupational status: retired current occupation: retired How many Children do You have: 3 Feels Safe at Home: Yes Childhood Exposure to Second-Hand Smoke: Yes caffeine: No Dental Care, Regularly: Yes Seatbelt Use: always Assistive Devices: CPAP Allergies Allergies Allergy/AdvReac Type Severity Reaction Status Date / Time metoprolol AdvReac Unknown GI SYMPTOMS Verified 05/28/24 18:46 Esbriet AdvReac Severe Rash Uncoded 05/28/24 18:46 Home Meds Home Medications Medication Instructions Recorded Confirmed aspirin 81 mg tablet,delayed 81 mg PO HS 01/16/20 05/28/24 release cholecalciferol (vitamin D3) 50 50 mcg PO DAILY 03/18/20 05/28/24 mcg (2,000 unit) capsule atorvastatin 40 mg tablet 40 mg PO DAILY 05/28/24 05/28/24 fluticasone propionate 50 2 spray intranasal DAILY PRN 05/28/24 05/28/24 mcg/actuation nasal Congestion spray,suspension (Flonase Allergy Relief) Previous Rx's Medication Instructions Recorded CPAP Machine #1 ea 12/21/20 nitroglycerin 0.4 mg sublingual 0.4 mg sublingual UD PRN chest 07/11/22 tablet (Nitrostat) pain #25 tabs fluticasone furoate 100 1 inh inhalation DAILY #60 ea 09/17/23 mcg-vilanterol 25 mcg/dose inhalation powder (Breo Ellipta) allopurinol 100 mg tablet 100 mg PO DAILY #90 tabs 02/14/24 carvedilol 12.5 mg tablet 12.5 mg PO DAILY #90 tabs 02/14/24 clopidogrel 75 mg tablet 75 mg PO QAM #90 tabs 02/14/24 losartan 25 mg tablet 25 mg PO QAM #90 tabs 02/14/24 furosemide 20 mg tablet 20 mg PO DAILY #90 tabs 04/22/24 tamsulosin 0.4 mg capsule 0.4 mg PO DAILY #30 caps 05/14/24 Results & Data (ED) Vital Signs Vital Signs - 24 hr 05/28/24 15:01 05/28/24 15:10 05/28/24 15:24 Temperature 36.6 C Temperature Source Temporal Artery Scan Pulse Rate 71 Respiratory Rate 18 18 Blood Pressure 117/67 Blood Pressure Mean 83 Pulse Oximetry 95 Oxygen Delivery Method Room Air Room Air Sepsis Recent Fever Within 48 Hours No Sepsis New/Unexplained Change in Mental Status N/A Sepsis Action Taken by Nursing No Action Required 05/28/24 15:24 05/28/24 15:26 Temperature Temperature Source Pulse Rate 69 68 Respiratory Rate Blood Pressure Blood Pressure Mean Pulse Oximetry 94 Oxygen Delivery Method Room Air Sepsis Recent Fever Within 48 Hours Sepsis New/Unexplained Change in Mental Status Sepsis Action Taken by Custodial Medications Current Medication List: was personally reviewed by me Laboratory Data Attestation: I reviewed the patient's lab results. 05/28/24 Unknown 05/28/24 Unknown Lab Results 05/28/24 05/28/24 Range/Units 15:44 17:00 Urine Color Yellow Urine Appearance Clear (Clear) Urine pH 6.0 (4.5-7.5) Ur Specific [place] 1.023 (1.000-1.030) Urine Protein 1+ H (Negative) Urine Glucose (UA) Negative (Negative) Urine Ketones Trace H (Negative) Urine Blood Negative (Negative) Urine Nitrite Negative (Negative) Urine Bilirubin Negative (Negative) Urine Urobilinogen Negative (Negative) Ur Leukocyte Esterase Negative (Negative) Urine WBC (Auto) 0-5 (0-5) /hpf Urine RBC (Auto) 0-2 (0-2) /hpf U Hyaline Cast (Auto) 0-2 (0-2) /lpf U Epithel Cells (Auto) 0-2 (0-2) /hpf Urine Bacteria (Auto) None Seen (None Seen) Nasal Influ A H1 2008 PCR DETECTED A (NotDetected) Adenovirus (PCR) Not Detected (NotDetected) B. pertussis DNA (PCR) Not Detected (NotDetected) B.parapertussis DNA PCR Not Detected (NotDetected) C. pneumoniae DNA (PCR) Not Detected (NotDetected) Coronavirus OC43 (PCR) Not Detected (NotDetected) Coronavirus HKU1 (PCR) Not Detected (NotDetected) Coronavirus 229E (PCR) Not Detected (NotDetected) SARS-CoV-2 (PCR) Not Detected (NotDetected) Coronavirus NL63 (PCR) Not Detected (NotDetected) Human Metapneumovir PCR Not Detected (NotDetected) Influenza Type B (PCR) Not Detected (NotDetected) M. pneumoniae (PCR) Not Detected (NotDetected) Parainfluenza 1 (PCR) Not Detected (NotDetected) Parainfluenza 2 (PCR) Not Detected (NotDetected) Parainfluenza 3 (PCR) Not Detected (NotDetected) Parainfluenza 4 (PCR) Not Detected (NotDetected) RSV (PCR) Not Detected (NotDetected) Entero/Rhino (PCR) Not Detected (NotDetected) Administered Medications Aspirin (Aspirin 81 Mg Ectab) 81 mg PO [facility] Stop: 06/27/24 20:59 Last Admin: 05/28/24 23:03 Dose: 81 mg Documented By: SILVIA Atorvastatin Calcium (Atorvastatin 40 Mg Tab) 40 mg PO [facility] Stop: 06/27/24 20:59 Last Admin: 05/28/24 22:25 Dose: 40 mg Documented By: SILVIA Sodium Chloride (Nss) 500 mls @ 80 mls/hr IV .Q6H15M MOOK Stop: 05/29/24 00:44 Last Admin: 05/28/24 18:55 Dose: 80 mls/hr Documented By: CARMELITA Discontinued Medications Sodium Chloride (Nss) 500 mls @ 999 mls/hr IV .Q31M ONE Stop: 05/28/24 16:12 Last Infusion: 05/28/24 16:25 Dose: Infused Documented By: Admin: 05/28/24 15:51 Dose: 999 mls/hr Documented By: CARMELITA Sodium Chloride (Nss) 500 mls @ 999 mls/hr IV .Q31M ONE Stop: 05/28/24 17:03 Last Infusion: 05/28/24 20:42 Dose: Infused Documented By: Admin: 05/28/24 17:18 Dose: 999 mls/hr Documented By: CARMELITA Lidocaine/Epinephrine (Lidocaine 1%/Epinephrine 1:100,000 50 Ml Vial) 20 ml INFIL NOW ONE Stop: 05/28/24 17:37 Last Admin: 05/28/24 17:57 Dose: 20 ml Documented By: DWAYNE Lidocaine/Epinephrine (Lidocaine 1%/Epinephrine 1:100,000 50 Ml Vial) Confirm Administered Dose 1 ml .ROUTE .STK-MED ONE Stop: 05/28/24 17:37 Last Admin: 05/28/24 17:57 Dose: Not Given Documented By: CARMELITA Oseltamivir Phosphate (Oseltamivir Phosphate 75 Mg Cap) 75 mg PO NOW STA Stop: 05/28/24 18:25 Last Admin: 05/28/24 18:54 Dose: 75 mg Documented By: CARMELITA Imaging Data Radiologist's Impression: Chest X-Ray 05/28/24 15:24 PORTABLE SUPINE AP CHEST RADIOGRAPH CLINICAL HISTORY: Chest pain, nonspecific. COMPARISON STUDY: Chest radiograph February 25, 2024. Chest CT July 10, 2023. FINDINGS: Interstitial thickening is greater within the left lung. This is similar to prior exam. No superimposed consolidation is present. Cardiomediastinal silhouette is stable. No pneumothorax or pleural effusion is identified on supine exam. IMPRESSION: 1. No acute cardiopulmonary findings. 2. No significant change in interstitial thickening consistent with pulmonary fibrosis. No superimposed consolidation to suggest pneumonia. ACT 112: Negative or not required by law. Electronically signed by: Sagar Tuttle M.D. 05/28/2024 4:[address] 05/28/24 15:42 Clinical history: Fall Technique: Axial computed tomography images were obtained of the cervical spine without intravenous contrast. Sagittal and coronal reconstructions were obtained Findings: No fracture is identified. No listhesis is seen. No focal osseous lesion is evident. There is atlantoaxial osteoarthritis At C2-3, no disc herniation is identified. There is no spinal stenosis. The neural foramen are patent At C3-4, there is spinal stenosis due to a disc bulge and a left paracentral disc herniation. There is left neural foramen narrowing that may affect the left C4 nerve root At C4-5, there is a disc bulge and a small central disc protrusion, with mild spinal stenosis. The neural foramen are patent At C5-6, there is a disc bulge without spinal stenosis. The neural foramen are patent At C6-7, no disc herniation is identified. There is no spinal stenosis. The neural foramen are patent At C7-T1,no disc herniation is identified. There is no spinal stenosis. The neural foramen are patent There are irregular opacities in the lung apices, likely due to pleural-parenchymal scarring. The visualized soft tissues of the neck appear unremarkable. No foreign body is seen Impression: 1. No definite cervical spine fracture 2. Spinal stenosis at C3-4 and to a lesser extent at C4-5 3. Left C3-4 neural foramen narrowing that may affect the left C4 nerve root Electronically signed by Jaxson Chen 05-28-2024 4:[address] 05/28/24 15:42 Clinical History: Loss of consciousness after fall Technique: Axial computed tomography images were obtained of the brain without intravenous contrast. Findings: There is diffuse cerebral atrophy, within expected limits for the patient's age. Areas of decreased attenuation are seen within the periventricular white matter, likely representing chronic small vessel ischemic disease. There is no definite sign of acute or old infarction. No intracranial hemorrhage is evident. No definite mass lesion is seen on this noncontrast examination. There is no midline shift or other form of herniation. No hydrocephalus is seen. No fracture is identified. The orbits and the visualized paranasal sinuses appear unremarkable. The mastoid air cells appear clear. Impression: 1. Cerebral atrophy and chronic small vessel ischemic disease 2. Otherwise unremarkable noncontrast CT of the brain Electronically signed by Jaxson Chen 05-28-2024 4:29 PM Discharge Plan Visit Data Chief Complaint: Fall Stated Complaint: SYNCOPE, FALL ED Provider: Efraín Aguilar Discharge Problem: Syncope, Amnesia, Acute head trauma, Laceration of scalp Patient Disposition: Admitted As Inpatient Condition: Fair Discharge Instructions Interventions: ED Discharge Assessment Last Done: 05/28/24 19:40 Discharge Problem: Syncope Qualifiers: Syncope type: unspecified Qualified Code(s): R55 - Syncope and collapse Acute head trauma Qualifiers: Encounter type: initial encounter Qualified Code(s): S09.90XA - Unspecified injury of head, initial encounter Laceration of scalp Qualifiers: Encounter type: initial encounter Qualified Code(s): S01.01XA - Laceration without foreign body of scalp, initial encounter
[2024-05-28] MEDS: SODIUM CHLORIDE 0.9% 500 ML IV ONE ×2 (15:51→17:18)
[2024-05-28 15:55] LABS: Albumin Globulin Ratio 1.1 (0.9-2); Albumin Level 3.5 gm/dl (3.4-5.0); BUN Creatinine Ratio 21.7 (10-20); Bilirubin,Total 0.4 mg/dl (0.2-1.0); Calcium 8.6 mg/dl (8.6-10.3); Creatinine Clr Calc Pharmacy 34.6 ml/min; Globulin 3.1 gm/dl (2.5-4.0); Potassium 4.2 mmol/L (3.5-5.1); Total Protein 6.6 gm/dl (6.0-8.3)
[2024-05-28 16:02] LABS: Troponin I High Sensitivity 16.3 pg/ml (0-20)
[2024-05-28 16:07] LABS: Partial Thromboplastin Ratio 1.1; Partial Thromboplastin Time 30 Seconds (21-31); Prothrombin Time 10.7 Seconds (9.0-12.0)
--- NOTE | 2024-05-28 16:08 | XRay Report ---
PORTABLE SUPINE AP CHEST RADIOGRAPH CLINICAL HISTORY: Chest pain, nonspecific. COMPARISON STUDY: Chest radiograph February 25, 2024. Chest CT July 10, 2023. FINDINGS: Interstitial thickening is greater within the left lung. This is similar to prior exam. No superimposed consolidation is present. Cardiomediastinal silhouette is stable. No pneumothorax or ple ural effusion is identified on supine exam. IMPRESSION: 1. No acute cardiopulmonary findings. 2. No significant change in interstitial thickening consistent with pulmonary fibrosis. No superimpos ed consolidation to suggest pneumonia. ACT 112: Negative or not required by law. Electronically signed by: Sagar Tuttle M.D. 05/28/2024 4:07 PM
--- NOTE | 2024-05-28 16:29 | CT Scan Report ---
Clinical History: Loss of consciousness after fall Technique: Axial computed tomography images were obtained of the brain without intravenous contrast. Findings: There is diffuse cerebral atrophy, within expected limits for the patient's age. Areas of decreased attenuation are seen within the periventricular white matter, likely representing chronic small vessel ischemic disease. There is no definite sign of acute or old infarction. No intracranial hemorrhage is evident. No definite mass lesion is seen on this noncontrast examination. There is no midline shift or other form of herniation. No hydrocephalus is seen. No fracture is identified. The orbits and the visualized paranasal sinuses appear unremarkable. The mastoid air cells appear clear. Impression: 1. Cerebral atrophy and chronic small vessel ischemic disease 2. Otherwise unremarkable noncontrast CT of the brain Electronically signed by Jaxson Chen 05-28-2024 4:29 PM
--- NOTE | 2024-05-28 16:39 | CT Scan Report ---
Clinical history: Fall Technique: Axial computed tomography images were obtained of the cervical spine without intravenous contrast. Sagittal and coronal reconstructions were obtained Findings: No fracture is identified. No listhesis is seen. No focal osseous lesion is evident. There is atlantoaxial osteoarthritis At C2-3, no disc herniation is identified. There is no spinal stenosis. The neural foramen are patent At C3-4, there is spinal stenosis due to a disc bulge and a left paracentral disc herniation. There is left neural foramen narrowing that may affect the left C4 nerve root At C4-5, there is a disc bulge and a small central disc protrusion, with mild spinal stenosis. The neural foramen are patent At C5-6, there is a disc bulge without spinal stenosis. The neural foramen are patent At C6-7, no disc herniation is identified. There is no spinal stenosis. The neural foramen are patent At C7-T1,no disc herniation is identified. There is no spinal stenosis. The neural foramen are patent There are irregular opacities in the lung apices, likely due to pleural-parenchymal scarring. The visualized soft tissues of the neck appear unremarkable. No foreign body is seen Impression: 1. No definite cervical spine fracture 2. Spinal stenosis at C3-4 and to a lesser extent at C4-5 3. Left C3-4 neural foramen narrowing that may affect the left C4 nerve root Electronically signed by Jaxson Chen 05-28-2024 4:38 PM
--- NOTE | 2024-05-28 16:40 | Electrocardiogram Report ---
Test Reason : Blood Pressure : */* mmHG Vent. Rate : 67 BPM Atrial Rate : 67 BPM P-R Int : 164 ms QRS Dur : 92 ms QT Int : 404 ms P-R-T Axes : 82 63 97 degrees QTcB Int : 426 ms Normal sinus rhythm Possible Left atrial enlargement Abnormal ECG When compared with ECG of 09-Jul-2022 10:32, Premature ventricular complexes are no longer Present Confirmed by Audi Gupta ([id number]) on 05/28/2024 4:39:56 PM Referred By: Confirmed By: Audi Gupta
[2024-05-28 16:51] LABS: Adenovirus PCR Not Detected (NotDetected); Bordetella parapertussis PCR Not Detected (NotDetected); Bordetella pertussis PCR Not Detected (NotDetected); Chlamydia pneumoniae PCR Not Detected (NotDetected); Coronavirus 229E PCR Not Detected (NotDetected); Coronavirus CoV-2 (COVID19)PCR Not Detected (NotDetected); Coronavirus HKU1 PCR Not Detected (NotDetected); Coronavirus NL63 PCR Not Detected (NotDetected); Coronavirus OC43PCR Not Detected (NotDetected); Human Metapneumovirus PCR Not Detected (NotDetected); Influenza A (H1 2009) PCR DETECTED (NotDetected); Influenza B PCR Not Detected (NotDetected); Mycoplasma pneumoniae PCR Not Detected (NotDetected); Parainfluenza Virus 1 PCR Not Detected (NotDetected); Parainfluenza Virus 2 PCR Not Detected (NotDetected); Parainfluenza Virus 3 PCR Not Detected (NotDetected); Parainfluenza Virus 4 PCR Not Detected (NotDetected); Respiratory Syncytial VirusPCR Not Detected (NotDetected); Rhinovirus/Enterovirus PCR Not Detected (NotDetected)
[2024-05-28 17:31] LABS: Appearance Urine Clear (Clear); Bacteria Urine Automated None Seen (None Seen); Bilirubin Urine Negative (Negative); Blood Urine Negative (Negative); Cast Urine Automated 0-2 /lpf (0-2); Color Urine Yellow; Epithelial Cell Urine Auto 0-2 /hpf (0-2); Glucose Urine UA Negative (Negative); Ketones Urine Trace (Negative); Leukocyte Esterase Urine Negative (Negative); Nitrite Urine Negative (Negative); Protein Urine 1+ (Negative); RBC Urine Automated 0-2 /hpf (0-2); Specific Gravity Urine 1.023 (1.000-1.030); Urobilinogen Urine Negative (Negative); WBC Urine Automated 0-5 /hpf (0-5)
[2024-05-28] MEDS: LIDOCAINE 1%/EPINEPHRINE 1:100,000 50 ML VIAL INFIL ONE (17:57)
[2024-05-28] MEDS: LIDOCAINE 1%/EPINEPHRINE 1:100,000 50 ML VIAL ONE (17:57)
--- NOTE | 2024-05-28 18:07 | History & Physical Report ---
Date of Service May 28, 2024 Assessment & Plan (1) Syncope: (2) Influenza A: (3) Ischemic cardiomyopathy: (4) Coronary artery disease: (5) CKD (chronic kidney disease), stage III: (6) Transaminitis: Plan Patient is an 83-year-old male with past medical history of stage III CKD, RAKAN on CPAP, gout, chronic anemia, vitamin D deficiency, prediabetes, CAD s/p stent to LAD 2019, ischemic cardiomyopathy (EF 40 to 45% 2021), pulmonary fibrosis, GERD. He presented to the ED after a syncopal episode after going to the bathroom in which he struck his head. Patient is on aspirin and Plavix. He is being admitted for syncopal workup and treatment for influenza A. #Syncope Positive head strike, on ASA and Plavix Hugh to posterior scalp in ED - will need removed with PCP Head CT negative, cervical spine CT negative, CXR negative Electrolytes stable Does appear dry with elevated BUN (35), creatinine increased 1.45 to 1.61, pressures soft 1L NSS bolus in ED Caution with IV hydration given CHF history, 500 mL NSS at 80 mL/hour overnight Promote oral hydration Most recent echo 2021; echo ordered Monitor on telemetry #Influenza A Influenza A H 2008 positive on admission Symptoms for 2 to 3 days of cough, low-grade fever, dizziness, weakness Start Tamiflu Supportive care with Tylenol as needed, Tessalon Perles as needed Promote oral hydration Isolation precautions #Ischemic cardiomyopathy/CAD s/p stent to 2019 not in acute exacerbation on admission Last echocardiogram 2021 showed improvement of EF from 20 to 25% to 40 to 45%, mild mitral regurg repeat echo as above Continue ASA, statin, Coreg, Plavix, losartan, nitro Hold furosemide with IV hydration as above - can likely resume on discharge #stage III CKD Creatinine increased from 1.45-1.61 Likely acute dehydration with influenza A Not meeting criteria for GLYNN promote oral hydration and IV hydration as above Avoid NSAIDs trend bmp #mild transaminitis AST 46, alk phos 146 Chronic Trend CMP Chronic stable diagnoses: OSAhome CPAP at bedtime Goutcontinue allopurinol Prostate canceron surveillance, tamsulosin daily pulmonary fibrosiscontinue home inhalers VTE ppx: SCDs, low risk and obs Diet: heart healthy, low-sodium Dispo: med/tele obs - anticipate dc home 05/29 Admission and Anticipated Discharge Date Admission Date: 05/28/24 History of Present Illness Chief Complaint: fall Primary Care Provider: Jenifer Cagle DO Patient is an 83-year-old male with past medical history of stage III CKD, RAKAN on CPAP, gout, chronic anemia, vitamin D deficiency, prediabetes, CAD s/p stent to LAD 2019, ischemic cardiomyopathy (EF 40 to 45% 2021), pulmonary fibrosis, GERD. He presented to the ED after a syncopal episode after going to the bathroom in which he struck his head. Patient is on aspirin and Plavix. He is being admitted for syncopal workup and treatment for influenza A. Concern going home with dizziness, weakness, and syncope. Patient seen at bedside. He stated he has had a cough for 2 [address] ated that he does not remember what happened this morning but he was 3 feet from the toilet when he woke up. He got himself up and was able to lie in the bed and then called his who brought him in. He stated he did eat breakfast and lunch this morning and had 2 out of 3 of his morning medications, is not sure which 2 he missed. He takes aspirin in the evening. He stated he has felt lightheaded for the past few days but is unsure if he felt this prior to the episode. He suspects he was going to the bathroom when he syncopized, however no way to confirm this. He is up-to-date on his tetanus vaccine, believes to have received last year. Of note he saw his PCP 04/22 due to dizziness and lightheadedness. Patient denies fever, chills, headache, dizziness, lightheadedness, vision changes, rhinorrhea, sore throat, dyspnea, dyspnea on exertion, chest pain, abdominal pain, nausea, vomiting, diarrhea, numbness, tingling. He does not use nicotine products or frequently drink alcohol. He denies past history of DM. He does use CPAP at bedtime, is bringing in his send machine. He has been taking Tylenol and Sudafed for the past few days to help with his cough; have mostly resolved his symptoms. He wishes to be full code. Allergies Allergy/AdvReac Type Severity Reaction Status Date / Time pirfenidone Allergy Severe Rash Verified 05/29/24 02:05 metoprolol AdvReac Unknown GI SYMPTOMS Verified 05/28/24 18:46 Home Medications Medication Instructions Recorded Confirmed Type aspirin 81 mg tablet,delayed 81 mg PO HS 01/16/20 05/28/24 History release cholecalciferol (vitamin D3) 50 50 mcg PO DAILY 03/18/20 05/28/24 History mcg (2,000 unit) capsule CPAP Machine #1 ea 12/21/20 05/07/24 Rx nitroglycerin 0.4 mg sublingual 0.4 mg sublingual UD PRN chest 07/11/22 05/28/24 Rx tablet (Nitrostat) pain #25 tabs fluticasone furoate 100 1 inh inhalation DAILY #60 ea 09/17/23 05/28/24 Rx mcg-vilanterol 25 mcg/dose inhalation powder (Breo Ellipta) allopurinol 100 mg tablet 100 mg PO DAILY #90 tabs 02/14/24 05/28/24 Rx carvedilol 12.5 mg tablet 12.5 mg PO DAILY #90 tabs 02/14/24 05/28/24 Rx clopidogrel 75 mg tablet 75 mg PO QAM #90 tabs 02/14/24 05/28/24 Rx losartan 25 mg tablet 25 mg PO QAM #90 tabs 02/14/24 05/28/24 Rx furosemide 20 mg tablet 20 mg PO DAILY #90 tabs 04/22/24 05/28/24 Rx tamsulosin 0.4 mg capsule 0.4 mg PO DAILY #30 caps 05/14/24 05/28/24 Rx atorvastatin 40 mg tablet 40 mg PO DAILY 05/28/24 05/28/24 History fluticasone propionate 50 2 spray intranasal DAILY PRN 05/28/24 05/28/24 History mcg/actuation nasal Congestion spray,suspension (Flonase Allergy Relief) Past Med/Surg History Problem List (Updated 05/29/24 @ 00:40 by Efraín Aguilar MD) Laceration of scalp (Acute) Acute head trauma (Acute) Amnesia (Acute) Syncope (Acute) Transaminitis Influenza A Influenza Syncope History of prostate cancer Gout Urinary frequency Sensorineural hearing loss (SNHL) of both ears Vitamin D deficiency Allergy status to unspecified drugs, medicaments and biological substances Drug rash Phototoxicity due to sun Coronary artery disease Chronic anemia Ischemic cardiomyopathy CKD (chronic kidney disease), stage III History of heart artery stent Osteoarthrosis, hip, localized (Acute) Gastroesophageal reflux disease (Acute) Weakness (Acute) PVD (peripheral vascular disease) Elevated PSA Zenkers diverticulum IPF (idiopathic pulmonary fibrosis) Chronic cough Nocturnal hypoxemia Pre-syncope Altered mental status (Acute) Medical History Prostate cancer (03/06/23) Cerumen in auditory canal on examination IPF (idiopathic pulmonary fibrosis) Severe obstructive sleep apnea Chronic cough Obstructive sleep apnea Chronic cough Cough Non-productive cough Squamous cell carcinoma of nose Interstitial lung disease Allergic rhinitis Environmental allergies Pleural effusion, left Abnormal CT scan, lung Basal cell carcinoma of skin Chronic sinusitis Enlarged prostate without lower urinary tract symptoms (luts) Erectile dysfunction Interstitial lung disease Coughing Chronic systolic (congestive) heart failure RAKAN (obstructive sleep apnea) Wheezing Pneumonia Persistent cough Cholelithiasis Abdominal pain, right lower quadrant Hyperlipidemia HTN (hypertension) Surgical History History of hernia repair History of Mohs surgery for squamous cell carcinoma of skin History of cardiac cath Family History Father Leukemia Prostate cancer Mother Breast cancer Diabetes Hypertension Brother Myocardial infarction Prostate cancer Diabetes Heart disease Other Cancer No family history of adverse response to anesthesia No family history of bleeding disorder Denies family history of Ovarian cancer Lung cancer Colorectal cancer Social History Smoking Status: Never smoker Second Hand Exposure: No; Do You Dip or Chew Tobacco: No; Hx Alcohol Use: No Hx Substance Use: No Preferred Language: Syrian Communication Ability: Effective Visual Impairment: No Limitations Hearing Ability: Normal Polymer Specialist Required: No Beliefs That Will Affect Care: None marital status: Current Living Situation: Spouse current occupational status: retired current occupation: retired How many Children do You have: 3 Feels Safe at Home: Yes Safety Concerns: Feels Safe At This Time Childhood Exposure to Second-Hand Smoke: Yes caffeine: No Dental Care, Regularly: Yes Seatbelt Use: always Assistive Devices: Hearing Aid - Bilateral Assistive Devices Comment: hearing aids at home per pt Review of Systems Review of Systems: see HPI Physical Exam Physical Exam: The patient is awake, alert and oriented 3, well developed and well nourished, normocephalic, in no acute distress. Non-toxic appearing. HEENT- EOMI, mucous membranes dry. Hearing grossly intact. Hugh to posteior scalp. Heart-normal S1 and S2. No murmurs, rubs or gallops. Lungs-clear bilaterally, no respiratory distress, no accessory muscle use. Abdomen-normal bowel sounds and soft. No ascites noted. Non-tender. Extremities- no clubbing, cyanosis, or edema. Rheumatologic-normal range of motion. Psychiatric-normal affect. Results & Data Results & Data Vital Signs (Past 12 Hours) Vital Signs Temp Pulse Resp BP Pulse Ox O2 Del Method 05/28/24 15:26 68 05/28/24 15:24 69 94 Room Air 05/28/24 15:24 Room Air 05/28/24 15:10 18 05/28/24 15:01 36.6 C 71 18 117/67 95 Room Air Laboratory Results Reviewed CBC, PT/INR, CMP, bio fire, UA, troponin, mag Diagnostic Findings Reviewed head CT, cervical spine CT, CXR Medications Administered ed - 1l NSS bolus admission - tamiflu 75mg PO and 500 ml NSS at 80ml/hr ECG Additional Comments: NSR Code Status & VTE Plan Code Status full VTE Prophylaxis Plan VTE Prophylaxis will be ordered: Yes Supervising Physician Co-Signing Physician Notes I personally saw and examined the patient. I independently reviewed the labs, EKG, imaging, problem list, medication list, past medical history and family history. I verified all [place] points and agree with Ginny Dias PA-C with the following exceptions and/or additions: 83-year-old male presents to the following a syncope event O/E HS RRR, no murmurs, Chest CTAB, Abdo SNT A/P Influenza - start tamiflu Syncope - suspect hypotensive related to influenza, hold furosemide, IV NSS, monitor for recurrence PG Care Time/CCT Total # of Minutes Spent Total Time Spent with Patient: Total time spent is greater than 50% in coordination of care (as documented) at patient's floor/unit and/or counseling patient: Coding Level of Care Code 39254 INT INP/OBS CARE 3/75MIN Diagnoses Syncope R55 Influenza A J10.1 Ischemic cardiomyopathy I25.5 Coronary artery disease I25.10 CKD (chronic kidney disease), stage III N18.3 Transaminitis R74.01
[2024-05-28] MEDS: OSELTAMIVIR PHOSPHATE 75 MG CAP PO STA (18:54)
[2024-05-28] MEDS: SODIUM CHLORIDE 0.9% 500 ML IV SCH (18:55)
[2024-05-28] MEDS ORDERED: BENZONATATE 100 MG CAPSULE PO PRN (20:41)
[2024-05-28] MEDS ORDERED: NITROGLYCERIN SL 0.4 MG/TAB TAB SL PRN (20:41)
[2024-05-28] MEDS ORDERED: DOCUSATE SODIUM 100 MG CAP PO PRN (20:41)
[2024-05-28] MEDS ORDERED: ACETAMINOPHEN 325 MG TAB PO PRN (20:41)
[2024-05-28] MEDS ORDERED: ONDANSETRON INJ 2 MG/ML 2 ML VIAL IV PRN (20:41)
[2024-05-28] MEDS: ATORVASTATIN 40 MG TAB PO SCH (22:25)
[2024-05-28] MEDS: ASPIRIN 81 MG ECTAB PO SCH (23:03)
[2024-05-29] MEDS: LIDOCAINE 5% 1 PATCH TD STA (03:18)
[2024-05-29 07:54] LABS: Basophils # (auto) 0.02 K/uL (0.00-0.20); Basophils % (auto) 0.4 %; Eosinophils % (auto) 5.4 %; Hematocrit (blood only) 30.5 % (42.0-52.0); Hemoglobin 9.9 g/dl (14.0-18.0); Immature Granulocytes # (auto) 0.02 K/uL (0.01-0.20); Immature Granulocytes % (auto) 0.4 %; Lymphocytes # (auto) 1.98 K/uL (1.20-3.40); Lymphocytes % (auto) 35.7 %; Mean Corpuscular Hemoglobin 30.3 pg (25.0-34.0); Mean Corpuscular Hgb Conc 32.5 g/dL (32.0-36.0); Mean Corpuscular Volume 93.3 fL (80.0-100.0); Mean Platelet Volume 9.5 fL (9.4-12.4); Monocytes # (auto) 0.52 K/uL (0.11-0.59); Monocytes % (auto) 9.4 %; Neutrophils # (auto) 2.71 K/uL (1.40-6.50); Neutrophils % (auto) 48.7 %; Platelet Count 131 K/uL (130-400); RDW Coefficient of Variation 14.5 % (11.5-14.5); RDW Standard Deviation 50.2 fL (36.4-46.3); Red Blood Count 3.27 M/uL (4.70-6.10); White Blood Count 5.55 K/ul (4.8-10.8)
[2024-05-29 08:11] LABS: Albumin Level 3.1 gm/dl (3.4-5.0); Bilirubin,Total 0.3 mg/dl (0.2-1.0); Calcium 8.1 mg/dl (8.6-10.3); Magnesium 1.8 mg/dl (1.7-2.4); Potassium 3.7 mmol/L (3.5-5.1)
[2024-05-29 08:17] LABS: Albumin Globulin Ratio 1.1 (0.9-2); BUN Creatinine Ratio 21.3 (10-20); Creatinine Clr Calc Pharmacy 45.5 ml/min; Globulin 2.7 gm/dl (2.5-4.0); Total Protein 5.8 gm/dl (6.0-8.3)
[2024-05-29] MEDS: carvediloL 12.5 MG TAB PO SCH (09:35)
[2024-05-29] MEDS: OSELTAMIVIR PHOSPHATE SUSP 30 MG/5 ML UDP PO SCH (09:37)
[2024-05-29] MEDS: allopurinoL 100 MG TAB PO SCH (09:37)
[2024-05-29] MEDS: LOSARTAN POTASSIUM 25 MG TAB PO SCH (09:37)
[2024-05-29] MEDS: TAMSULOSIN HCL 0.4 MG CAP PO SCH (09:37)
[2024-05-29] MEDS: CLOPIDOGREL BISULFATE 75 MG TAB PO SCH (09:37)
[2024-05-29] MEDS: FLUTICASONE/VILANTEROL 100/25MCG 14 PUFFS/INHALER INH SCH (09:38)
[2024-05-29] MEDS ORDERED: IBUPROFEN 200 MG/10 ML UDC PO STA (11:02)
[2024-05-29] MEDS: traMADol HCL 50 MG TABLET PO STA (11:51)
[2024-05-29] MEDS: ACETAMINOPHEN 325 MG TAB PO SCH (11:52)
--- NOTE | 2024-05-29 11:52 | CT Scan Report ---
CT lumbar spine wo con CLINICAL HISTORY: right paraspinal pain T12/L1 L1/L2 region/fall COMPARISON STUDY: Lumbar spine radiographs June 22, 2023. TECHNIQUE: Axial images of the lumbar spine were obtained. Sagittal and coronal reformats were viewed . Automated exposure control was utilized for the study. A dose lowering technique was utilized adhe ring to the principles of ALARA. FINDINGS: Alignment of the lumbar spine is anatomic. Vertebral body heights are maintained. There are no lumbar spine fractures. There is mild disc space narrowing at L3-L4. There is moderate facet arth rosis. There are no osseous lesions. There is a 3.1 cm infrarenal abdominal aortic and is present. IMPRESSION: No lumbar spine fracture or subluxation. ACT 112: Negative or not required by law. Electronically signed by: Sagar Tuttle M.D. 05/29/2024 11:50 AM
--- NOTE | 2024-05-29 15:42 | XCELERA ---
[id number] \\[id number]
[2024-05-29 15:52] VITALS: BP 90/55; RESP 20; TEMP 98.2; O2SAT 96
[2024-05-29 16:00] VITALS: PULSE 71
[2024-05-30] MEDS ORDERED: LIDOCAINE 5% 1 PATCH TD SCH (09:00)
== END 2024-05-29 16:07 | disposition home or self-care (01) ==
LOC: ED 15:06 → 2W 15:06 → SUATTDRO 18:31 → 2W 19:40